=== PATIENT | female | born 1975 | race Caucasian/White ===

== ENCOUNTER → 2016-10-13 | Outpatient (CLI) | payer BC ==
[2016-10-13 16:16] LABS: Basophils % (A) 1 %; CH 29.1; CHCM 31.8; Eosinophils # (A) 0.2 k/uL (0-0.7); Eosinophils % (A) 3 %; HCT 43.6 % (34.0-46.0); HDW 2.23; HGB 13.8 gm/dL (11.4-16.0); Luc # (Auto) 0.13; Luc % (Auto) 2; Lymphocytes # (A) 1.3 k/uL (1.0-4.8); Lymphocytes % (A) 20 %; MCH 29.2 pg (25.0-35.0); MCHC 31.8 g/dL (31.0-37.0); MCV 91.8 fL (80.0-100.0); Monocytes # (A) 0.4 k/uL (0-1.0); Monocytes % (A) 6 %; Neutrophils # (A) 4.4 k/uL (1.3-7.7); Neutrophils % (A) 69 %; RBC 4.75 m/uL (3.80-5.40); RDW 13.4 % (11.5-15.5); WBC 6.4 k/uL (3.8-10.6); WBC (Perox) 6.11
[2016-10-13 16:25] LABS: ALT 35 U/L (9-52); AST 23 U/L (14-36); Alkaline Phosphatase 66 U/L (38-126); Anion Gap 11 mmol/L; Blood Urea Nitrogen 20 mg/dL (7-17); Calcium 9.4 mg/dL (8.4-10.2); Carbon Dioxide 24 mmol/L (22-30); Chloride 105 mmol/L (98-107); Glucose 63 mg/dL (74-99); Non-African American GFR(MDRD) >60 (>60 ml/min/1.73 sqM); Potassium 4.6 mmol/L (3.5-5.1); Sodium 140 mmol/L (137-145); Total Bilirubin 0.4 mg/dL (0.2-1.3); Total Protein 7.1 g/dL (6.3-8.2)
[2016-10-13 17:10] LABS: Vitamin B12 372 pg/mL (239-931)
== END | disposition home or self-care (01) ==
LOC: MMGSC 11:30
PROVIDERS: ATTEND Family Medicine
DX: E03.9 Hypothyroidism, unspecified (principal); R53.83 Other fatigue
CPT/HCPCS: 36415; 80053; 82306; 82607; 84439; 84443; 84480; 85025

== ENCOUNTER 2018-07-05 07:43 | Day surgery (SDC) | payer BC ==
[2018-07-03 12:21] VITALS: BMI 30.7
[~2018-07-05 07:43] MED LIST: LACTATED RINGERS 1,000 ML IV SCH
[2018-07-05 08:13] VITALS: TEMP 98.2
[2018-07-05] MEDS ORDERED: LIDOCAINE 1% 20 ML VIAL (10MG/ML) FOR IV START SQ ONE (08:15)
[2018-07-05] MEDS ORDERED: MIDAZOLAM 2 MG/2 ML VIAL ONE (08:51)
[2018-07-05] MEDS ORDERED: PROPOFOL 10 MG/ML 20 ML VIAL IV ONE (08:51)
[2018-07-05] MEDS ORDERED: fentaNYL (PF) 50 MCG/ML 2 ML AMP ONE (08:51)
--- NOTE | 2018-07-05 09:09 | P.PCN ---
Date of Procedure: 07/05/18 Procedure(s) Performed: BRIEF HISTORY: Patient is a 42-year-old pleasant female, scheduled for an elective colonoscopy as a part of value should of intermittent rectal bleeding for the last 3 months duration. PROCEDURE PERFORMED: Colonoscopy. PREOPERATIVE DIAGNOSIS: Intermittent rectal bleeding. IV sedation per Anesthesia. PROCEDURE: After informed consent was obtained, the patient, was brought into the endoscopy unit. IV sedation was administered by Anesthesia under continuous monitoring. Digital rectal examination was normal. Initially the Olympus CF-160 flexible video colonoscope was then inserted in the rectum, gradually advanced into the cecum without any difficulty. Careful examination was performed as the scope was gradually being withdrawn. Ileocecal valve and the appendiceal orifice were visualized and appeared normal. Prep was excellent. Mucosa of the cecum, ascending colon, transverse colon, descending colon, sigmoid colon, and rectum appeared normal. Retroflexion was performed in the rectum and no lesions were seen. The patient tolerated the procedure well. IMPRESSION: Normal-appearing colon from rectum to cecum with no evidence of colorectal neoplasia . Small internal hemorrhoids. RECOMMENDATIONS: Findings of this examination were discussed with the patient as well as her family. She will remain on a high-fiber diet and take fiber supplements on a regular basis and try to avoid straining and constipation. She was advised to have a screening colonoscopy in 10 years..
[2018-07-05 09:24] VITALS: RESP 16
[2018-07-05 09:44] VITALS: BP 110/73; PULSE 61
== END 2018-07-05 09:59 | disposition home or self-care (01) ==
LOC: ORWHC2ENDO 07:43
PROVIDERS: ATTEND Internal Medicine Gastroenterology
DX: K62.5 Hemorrhage of anus and rectum (principal); K64.8 Other hemorrhoids; Z87.891 Personal history of nicotine dependence; Q61.3 Polycystic kidney, unspecified; E07.9 Disorder of thyroid, unspecified; Z79.890 Hormone replacement therapy; Z79.899 Other long term (current) drug therapy; Z88.2 Allergy status to sulfonamides; Z88.1 Allergy status to other antibiotic agents; Z88.0 Allergy status to penicillin
CPT/HCPCS: 81025; 45378; J2250; J3010; J2704

== ENCOUNTER → 2019-10-24 | Outpatient (CLI) | payer BC ==
--- NOTE | 2019-10-24 10:23 | US ---
EXAMINATION TYPE: US kidneys/renal and bladder DATE OF EXAM: 10/24/2019 COMPARISON: NONE CLINICAL HISTORY: R10.814 Left lower quadrant abdominal tenderness. History of renal stones and polyc ystic kidneys per patient EXAM MEASUREMENTS: Right Kidney: 11.1 x 5.0 x 5.8 cm Left Kidney: 11.6 x 5.7 x 5.2 cm Right Kidney: Innumerable echogenic foci, largest measuring 0.4 cm. No hydronephrosis. Multiple cysti c areas visualized, largest measuring 2.2 x 1.8 x 1.9 cm Left Kidney: Innumerable echogenic foci, largest measuring 0.9 cm. No hydronephrosis. Multiple tiny cystic areas visualized, largest measuring 1.0 cm Bladder: wnl Bilateral Jets seen: Yes IMPRESSION: 1. Numerous bilateral renal calculi with no obstruction. Medullary sponge kidney in the differential diagnosis. 2. Multiple bilateral renal cysts.
== END | disposition home or self-care (01) ==
LOC: RADUSWWP 09:33
PROVIDERS: ATTEND Family Medicine
DX: N20.0 Calculus of kidney (principal); N28.1 Cyst of kidney, acquired
CPT/HCPCS: 76770

== ENCOUNTER → 2019-12-10 | Outpatient (CLI) | payer BC ==
--- NOTE | 2019-12-10 14:06 | XR ---
EXAMINATION TYPE: XR KUB DATE OF EXAM: 12/10/2019 COMPARISON: Ultrasound 10/24/2019 HISTORY: Pain, renal calculus TECHNIQUE: One view abdominal series FINDINGS: Degenerative change of the spine. The bowel gas pattern is nonspecific. Intrauterine device is seen. Metallic densities overlying the sacrum appears superficial. Calcifications in the pelvis are nonspe cific but likely vascular. Renal outlines are secured by overlying bowel content. However, there likely are numerous small focal calcifications overlying the right kidney correspondin g to the ultrasound abnormality. At least 5 calcifications are seen measuring less than 3 mm. Left kidney also demonstrates overlying bowel content. Punctate less than 5 mm multiple calculi are n oted. IMPRESSION: 1. Exam limited by overlying bowel content however multiple sub-5 mm bilateral renal calculi are susp ected in concordant with the ultrasound.
== END | disposition home or self-care (01) ==
LOC: RADXRMAIN 13:47
PROVIDERS: ATTEND Urology
DX: N20.0 Calculus of kidney (principal)
CPT/HCPCS: 74018

== ENCOUNTER → 2019-12-31 | Outpatient (CLI) | payer BC ==
--- NOTE | 2019-12-31 13:14 | XR ---
EXAMINATION TYPE: XR KUB DATE OF EXAM: 12/31/2019 COMPARISON: NONE HISTORY: Pain renal calculus TECHNIQUE: One view abdominal series FINDINGS: Right kidney: Single punctate 2 mm calcification overlying the lower pole the right renal outline. Left kidney: There are 2 calcifications overlying the mid pole the left kidney measuring approximatel y 2 mm. Hypertrophic and degenerative change of the spine. Bowel gas pattern nonspecific. Pelvic calcificatio ns are stable from prior exam and likely vascular. Arthropathy of the hips. IMPRESSION: 1. Bilateral sub-5 mm nephrolithiasis
== END | disposition home or self-care (01) ==
LOC: RADXRMAIN 12:46
PROVIDERS: ATTEND Urology
DX: N20.0 Calculus of kidney (principal); Z98.890 Other specified postprocedural states
CPT/HCPCS: 74018

== ENCOUNTER → 2020-10-04 | Outpatient (CLI) | payer BC ==
--- NOTE | 2020-10-04 09:22 | MR ---
EXAMINATION TYPE: MR knee RT wo con DATE OF EXAM: 10/04/2020 COMPARISON: Right knee pain HISTORY: R knee pain TECHNIQUE: Multiplanar, multisequence imaging of the right knee is performed without IV contrast. FINDINGS: MEDIAL MENISCUS: Anterior and posterior horns are intact without tear. LATERAL MENISCUS: Anterior and posterior horns are intact without tear. CRUCIATE LIGAMENTS: The anterior and posterior cruciate ligaments are intact and unremarkable. COLLATERAL LIGAMENTS: The medial collateral ligament and lateral collateral ligament complex are inta ct and unremarkable. EXTENSOR MECHANISM: Visualized quadriceps and patellar tendons are intact. EFFUSION: No significant suprapatellar joint effusion. POPLITEAL CYST: There is a small Viera's cyst. CARTILAGE: There are partial-thickness articular cartilage defects of the lateral facet and median ri dge of the patella (grade 2). There are full-thickness articular cartilage defects of the medial femo ral condyle and medial tibial plateau with subchondral marrow edema. There are partial-thickness te cular cartilage defects of the posterior lateral femoral condyle (grade 2). There are full-thickness articular cartilage defects of the medial trochlea (grade 4). BONE MARROW SIGNAL: No focal abnormal marrow signal is appreciated. OTHER: No additional significant abnormality is appreciated. IMPRESSION: 1. Tricompartmental articular cartilage defects are worst in the medial compartment. 2. Small Viera's cyst.
== END | disposition home or self-care (01) ==
LOC: RADMRIMAIN 08:07
PROVIDERS: ATTEND Orthopaedic Surgery
DX: M23.91 Unspecified internal derangement of right knee (principal); M71.21 Synovial cyst of popliteal space [Baker], right knee

== ENCOUNTER 2020-11-17 10:22 | Day surgery (SDC) | payer BC ==
[2020-11-11 17:32] VITALS: BMI 32.6
--- NOTE | 2020-11-16 18:34 | HP ---
HISTORY AND PHYSICAL DATE OF SURGERY: 11/17/2020 Chloe Lopes is a 45-year-old patient seen with progressive right knee pain. We discussed options. She elected to proceed with arthroscopy. Consent was obtained. PAST MEDICAL HISTORY: Hypothyroidism, hyperlipidemia, bei-ofuidxn-[id number] diabetes. PAST SURGICAL HISTORY: Knee arthroscopy, shoulder arthroscopy. DAILY MEDICATIONS: Levothyroxine, gabapentin, Lipitor, metformin. ALLERGIES: BACTRIM, PENICILLIN, QUINOLONES. SOCIAL HISTORY: She denies tobacco use. PHYSICAL EVALUATION OF THE RIGHT KNEE: Range of motion is zero to 130. Mild effusion. Tenderness, medial joint line. Positive medial Kim's. Ligaments stable. Patellar crepitus. Pain with patellofemoral compression. Distal neurovascular exam intact. RADIOGRAPHS: Right knee radiographs revealed mild osteoarthritis. MRI right knee revealed articular cartilage defects. IMPRESSION: 1. Internal derangement of right knee with osteochondral tear. 2. Hyperlipidemia. 3. Hypothyroidism. 4. Lpf-syyjzgc-akosqngse diabetes. PLAN: Right knee arthroscopy with chondroplasty and debridement. MMODL / IJN: [id number] /
[~2020-11-17 10:22] MED LIST changes: +DEXAMETHASONE SOD PHOSPHATE 4 MG/ML 1 ML VIAL IV ONE; +LIDOCAINE 1% (10MG/ML) FOR IV START INTRADERMA PRN; +ONDANSETRON 4 MG/2 ML VIAL IVP ONE; +SCOPOLAMINE 1.5MG/72HR PATCH TRANSDERM ONE
[2020-11-17 11:02] LABS: Glucose,Whole Blood 89 mg/dL (75-99)
[2020-11-17] MEDS ORDERED: MIDAZOLAM 2 MG/2 ML VIAL ONE (11:30)
[2020-11-17] MEDS ORDERED: KETOROLAC 15 MG/ML 1 ML VIAL ONE (11:30)
[2020-11-17] MEDS ORDERED: PROPOFOL 10 MG/ML 20 ML VIAL IV ONE (11:30)
[2020-11-17] MEDS ORDERED: fentaNYL (PF) 50 MCG/ML 2 ML AMP ONE (11:30)
[2020-11-17] MEDS ORDERED: LIDOCAINE 1% INJ 10MG/ML (20 ML MDV) ONE (11:30)
[2020-11-17] MEDS ORDERED: BUPIVACAINE (PF) 0.25% 30 ML VIAL INTRAARTIC ONE (12:04)
--- NOTE | 2020-11-17 12:21 | P.OP ---
Date of Procedure: 11/17/20 Preoperative Diagnosis: Internal derangement right knee Postoperative Diagnosis: 1. Tear medial meniscus right knee 2. Grade 3/4 chondromalacia medial femoral condyle right knee 3. Grade 2 chondromalacia patella right knee 4. Reactive synovitis medial, lateral and suprapatellar compartments right knee Procedure(s) Performed: 1. Arthroscopic partial medial meniscectomy right knee 2. Arthroscopic chondroplasty medial femoral condyle right knee 3. Arthroscopic microfracture medial femoral condyle right knee 4. Arthroscopic chondroplasty patella right knee 5. Arthroscopic partial synovectomy medial, lateral and suprapatellar compartments right knee Anesthesia: KEN, local Surgeon: Edwin Grey Estimated Blood Loss (ml): 5 Pathology: none sent Condition: stable Disposition: PACU Indications for Procedure: 45-year-old patient seen with progressive right knee pain. After having treatment options discussed, she elected to proceed with arthroscopy. Operative Findings: see description of procedure Description of Procedure: Patient was taken to the operative suite. Patient underwent a general anesthetic by the department of anesthesia. Patient was given preoperative antibiotics. The right lower extremity was placed in a well-padded arthroscopic leg ca. The right leg was prepped and draped in the normal sterile orthopedic fashion. A lateral parapatellar and suprapatellar incision was made. Trochars were inserted. Arthroscopy was initiated. Suprapatellar pouch revealed diffuse thick reactive synovitis. The patellofemoral joint appeared to articulate congruently. There was grade 2 chondromalacia with diffuse osteochondral tears present. The scope was guided into the medial gutter. No loose bodies or plica were identified The scope was then guided into the medial compartment. A medial parapatellar incision was made. Trocar inserted followed by probe. There was a radial tear posterior horn medial meniscus. There were grade 3/4 chondromalacia changes of the medial femoral condyle with some fairly large osteochondral flap tears present. There was thick reactive synovitis anteriorly. I performed a partial medial meniscectomy getting down to stable meniscal tissue. I performed a chondroplasty of the medial femoral condyle getting down to stable osteochondral tissue. I performed a partial synovectomy decompressing the thick reactive synovitis anteriorly. The residual meniscus was probed and found to be stable. There was good decompression of the synovitis. The residual osteochondral surface appeared stable. There was an area along the anterior weightbearing surface medial femoral condyle measuring about 8 mm in diameter with exposed bone. I performed a microfracture to area penetrating the bone with resultant bleeding at the microfracture site. I again probed the area was stable. Scope and probe were then guided into the intercondylar notch. Cruciates were identified, probed and found to be stable. The scope and probe were then guided into lateral compartment. Lateral meniscus was probed and found to be stable. There were mild grade 1 chondromalacia changes involving the lateral compartment with no tears. There was some thick reactive synovitis anteriorly. I introduced a motorized shaver and performed a partial synovectomy. The shaver was removed. There appeared be good decompression of the synovitis. The scope was in guided back into the suprapatellar compartment. I introduced a motorized shaver into the suprapatellar compartment. I performed a chondroplasty of the patella getting down to stable osteochondral tissue. I performed a partial synovectomy decompressing the reactive synovitis. Shaver was removed. The residual osteochondral surface of the patella was stable. There was good decompression of the synovitis. Instruments were now removed from the joint. The joint was infiltrated with .25% Marcaine. Steri-Strips were applied to the portal sites. Sterile dressings were applied. The patient was placed into a MARY CARMEN hose. No tourniquet was utilized. The patient was awakened, transferred to a bed and taken to recovery stable satisfactory condition.
[2020-11-17 12:22] VITALS: TEMP 96.8
[2020-11-17] MEDS: HYDROmorphone 0.5 MG/0.5 ML SYRINGE IVP PRN ×2 (12:33→12:39)
[2020-11-17 12:38] LABS: Glucose,Whole Blood 112 mg/dL (75-99)
[2020-11-17] MEDS ORDERED: LACTATED RINGERS 1,000 ML IV ONE (12:54)
[2020-11-17] MEDS ORDERED: traMADol 50 MG TAB ONE (13:33)
[2020-11-17] MEDS ORDERED: traMADol 50 MG TAB PO ONE (13:37)
[2020-11-17 14:04] VITALS: PULSE 74
[2020-11-17 14:41] VITALS: BP 129/83; RESP 16
== END 2020-11-17 15:00 | disposition home or self-care (01) ==
LOC: OR 10:22
PROVIDERS: ATTEND Orthopaedic Surgery

== ENCOUNTER → 2021-10-26 | Outpatient (CLI) | payer BC ==
[2021-10-26 15:46] VITALS: BP 134/82; PULSE 81; TEMP 99.1; BMI 33.8
--- NOTE | 2021-10-26 16:26 | P.HPBAR ---
Bariatric H&P - History & Physicial H&P Date: 10/26/21 History & Physicial: Visit/CC: new patient Patient initial contact: Initial weight: Initial weight in pounds: Height: 5 ft 7 in Initial BMI: Last weight: Current weight: 97.976 kg Current weight in pounds: 216.00 Current BMI: 33.8 [place] body weight (based on NIH guidelines): 61.235 kg Excess body weight loss: The patient is a 46 year-old F who presents for Bariatric Assessment. She was on saxenda and adipex for weight loss. Highest weight of 220 pounds. Her mother has trouble with weight. No stomach cancer. No esophageal cancer. She is due for colonoscopy. No GERD. No hypertension. No sleep apnea. She takes medications for weight loss. She has diabetes type II. She was on CPAP machine. No lower back pain. No hip pain. She has knee pain. No ankle pain. She has feet pain. No DVTs. She has raynauds and neuropathy. BMI of 35, 226 pounds. Past Medical History Past Medical History: Diabetes Mellitus, Hyperlipidemia, Thyroid Disorder Additional Past Medical History / Comment(s): rectal bleeding hx fissures,polycystic kidney disease, neuropathy History of Any Multi-Drug Resistant Organisms: None Reported Past Surgical History: Back Surgery Additional Past Surgical History / Comment(s): lamicectomies x2,bunionectomy,rt shoulder surgery,bridger knees scoped Past Anesthesia/Blood Transfusion Reactions: Motion Sickness, Postoperative Nausea & Vomiting (PONV) Additional Past Anesthesia/Blood Transfusion Reaction / Comm: no hx blood transfusion Past Psychological History: Anxiety, Depression Smoking Status: Former smoker Past Alcohol Use History: Occasional Additional Past Alcohol Use History / Comment(s): quit smoking 2017,smoked approx 5 yrs <1ppd Past Drug Use History: None Reported - Past Family History Mother Family Medical History: No Reported History Surgical - Exam Vital Signs Temp Pulse BP 99.1 F 81 134/82 10/26/21 15:39 10/26/21 15:39 10/26/21 15:39 Bariatric Checklist Checklist: Plan: Checklist: EGD: 1. Hiatal hernia: 2. H. Pylori: HgbA1c: Vitamin D: Smoking: Former smoker Primary care physician referral: Dr. Solis Psychiatry clearance: Cardiology clearance: Sleep study: Diet journal: VTE risk score: VTE risk level: Rehab needs at discharge:
== END | disposition home or self-care (01) ==
LOC: BARWHC3 15:16
PROVIDERS: ATTEND Surgery Plastic and Reconstructive Surgery
DX: E66.01 Morbid (severe) obesity due to excess calories (principal); Z68.33 Body mass index [BMI] 33.0-33.9, adult
CPT/HCPCS: 99213

== ENCOUNTER → 2021-12-08 | Outpatient (CLI) | payer BC ==
[2021-12-08 17:02] LABS: INR 0.9 (<1.2); Partial Thromboplastin Time 23.4 sec (22.0-30.0)
[2021-12-08 23:06] LABS: HCT 37.3 % (37.2-46.3); HGB 11.7 g/dL (12.0-15.0); MCH 28.3 pg (27.0-32.0); MCHC 31.4 g/dL (32.0-37.0); MCV 90.1 fL (80.0-97.0); NRBC Per 100 WBC 0 /100 WBCS (0.0-0.0); Platelet Count 356 X 10*3/uL (140-440); RBC 4.14 X 10*6/uL (4.10-5.20); RDW 13.2 % (11.5-14.5); WBC 6.81 X 10*3/uL (4.50-10.00)
[2021-12-09 02:41] LABS: % Iron Saturation 18.85 (12.00-45.00); ALT 47 U/L (8-44); AST 27 U/L (13-35); African American GFR (CKD) 100.2 (60.0-200.0); Albumin 4.2 g/dL (3.8-4.9); Albumin/Globulin Ratio 1.93 (1.60-3.17); Alkaline Phosphatase 65 U/L (41-126); BUN/Creat Ratio 24.69 Ratio (12.00-20.00); Calcium 9.1 mg/dL (8.7-10.3); Carbon Dioxide 25.9 mmol/L (20.0-27.5); Chloride 102 mmol/L (96-109); Ferritin 83.8 ng/mL (10.0-291.0); Globulin 2.2 g/dL (1.6-3.3); Glucose 93 mg/dL (70-110); Iron 64 ug/dL (50-170); Non-African American GFR(CKD) 86.5 (60.0-200.0); Phosphorus 3.3 mg/dL (2.4-5.1); Potassium 4.5 mmol/L (3.5-5.5); Sodium 140 mmol/L (135-145); Total Bilirubin <0.15 mg/dL (0.30-1.20); Total Iron Binding Capacity 342 ug/dL (228-460); Total Protein 6.4 g/dL (6.2-8.2)
[2021-12-09 02:58] LABS: Prealbumin 27.3 mg/dL (18.0-42.0)
[2021-12-09 02:59] LABS: Chol/HDL Ratio 3.21 Ratio; LDL Cholesterol,Calculated 108.5 mg/dL (0.0-131.0)
[2021-12-09 11:25] LABS: Zinc, Serum 68 ug/dL (60-130)
== END | disposition home or self-care (01) ==
LOC: LABWHC1 16:07
PROVIDERS: ATTEND Surgery Plastic and Reconstructive Surgery
DX: Z71.51 Drug abuse counseling and surveillance of drug abuser (principal); E66.01 Morbid (severe) obesity due to excess calories; D50.8 Other iron deficiency anemias; E89.1 Postprocedural hypoinsulinemia; E44.0 Moderate protein-calorie malnutrition; E55.9 Vitamin D deficiency, unspecified; K74.1 Hepatic sclerosis; N19 Unspecified kidney failure; T56.894A Toxic effect of other metals, undetermined, initial encounter; K50.90 Crohn's disease, unspecified, without complications
CPT/HCPCS: 84255; 84134; 84425; 80061; 80053; 82607; 82728; 82525; 82746; 83540; 83550; 83735; 84100; 84443; 84590; 84630; 85027; 85610; 85730; 82306; 80323; 83970; 83036; 80307; 93005; 36415; G0482

== ENCOUNTER 2022-01-02 06:36 | Day surgery (SDC) | payer BC ==
[2021-12-29 14:24] VITALS: BMI 36.0
[~2022-01-02 06:36] MED LIST changes: -DEXAMETHASONE SOD PHOSPHATE 4 MG/ML 1 ML VIAL IV ONE; -ONDANSETRON 4 MG/2 ML VIAL IVP ONE; -SCOPOLAMINE 1.5MG/72HR PATCH TRANSDERM ONE
--- NOTE | 2022-01-02 07:03 | P.GSHP ---
History of Present Illness H&P Date: 01/02/22 CHIEF COMPLAINT: GERD and colon screen HISTORY OF PRESENT ILLNESS: The patient is a 46-year-old female who presents with gastroesophageal reflux disease and need for colon screen. Upper and lower endoscopy were offered for further evaluation and management. PAST MEDICAL HISTORY: Please see list. PAST SURGICAL HISTORY: Please see list. MEDICATIONS: Please see list. ALLERGIES: Please see list. SOCIAL HISTORY: No illicit drug use FAMILY HISTORY: No reports of Crohn disease or ulcerative colitis. REVIEW OF ORGAN SYSTEMS: CONSTITUTIONAL: No reports of fevers or chills. GI: Denies any blood in stools or constipation. PHYSICAL EXAM: VITAL SIGNS: Stable GENERAL: Well-developed pleasant in no acute distress. HEENT: No scleral icterus. Extraocular movements grossly intact. Moist buccal mucosa. NECK: Supple without lymphadenopathy. CHEST: Unlabored respirations. Equal bilateral excursions. CARDIOVASCULAR: Regular rate and rhythm. Distal 2+ pulses. ABDOMEN: Soft, nondistended. MUSCULOSKELETAL: No clubbing, cyanosis, or edema. ASSESSMENT: 1. Gastroesophageal reflux disease 2. Colon screen. PLAN: 1. Recommend proceeding with an upper and lower endoscopy Past Medical History Past Medical History: Diabetes Mellitus, Hyperlipidemia, Sleep Apnea/CPAP/BIPAP, Thyroid Disorder Additional Past Medical History / Comment(s): hx rectal bleeding hx fissures,polycystic kidney disease, neuropathy hands/feet, diet control diabetic History of Any Multi-Drug Resistant Organisms: None Reported Past Surgical History: Back Surgery Additional Past Surgical History / Comment(s): lamicectomies x2,bunionectomy,rt shoulder surgery,bridger knees arthroscopy Past Anesthesia/Blood Transfusion Reactions: Motion Sickness, Postoperative Nausea & Vomiting (PONV) Additional Past Anesthesia/Blood Transfusion Reaction / Comment(s): no hx blood transfusion Smoking Status: Former smoker - Past Family History Mother Family Medical History: No Reported History Medications and Allergies Home Medications Medication Instructions Recorded Confirmed Type DULoxetine HCL [Cymbalta] 60 mg PO QAM 07/03/18 01/02/22 History Levothyroxine Sodium [Synthroid] 75 mcg PO QAM 07/03/18 01/02/22 History Loratadine [Claritin] 10 mg PO DAILY 07/03/18 01/02/22 History valACYclovir HCL [Valtrex] 500 mg PO DAILY 07/03/18 01/02/22 History ARIPiprazole [Abilify] 5 mg PO HS 11/11/20 01/02/22 History Atorvastatin [Lipitor] 10 mg PO DAILY 11/11/20 01/02/22 History Gabapentin 600 mg PO BID 11/11/20 01/02/22 History Sodium Bicarbonate Tab 650 mg PO BID 11/11/20 01/02/22 History Docusate [Colace] 100 mg PO DAILY 10/26/21 01/02/22 History Allergies Allergy/AdvReac Type Severity Reaction Status Date / Time levofloxacin [From Levaquin] Allergy Rash/Hives Verified 01/02/22 06:55 Penicillins Allergy Rash/Hives Verified 01/02/22 06:55 Quinolones Allergy Rash/Hives Verified 01/02/22 06:55 sulfamethoxazole Allergy Rash/Hives Verified 01/02/22 06:55 [From Bactrim] trimethoprim [From Bactrim] Allergy Rash/Hives Verified 01/02/22 06:55
[2022-01-02] MEDS ORDERED: ONDANSETRON 4 MG/2 ML VIAL ONE (07:18)
[2022-01-02] MEDS ORDERED: MIDAZOLAM 2 MG/2 ML VIAL ONE (07:21)
[2022-01-02] MEDS ORDERED: PROPOFOL 10 MG/ML 20 ML VIAL IV ONE (07:21)
[2022-01-02] MEDS ORDERED: fentaNYL (PF) 50 MCG/ML 2 ML AMP ONE (07:21)
[2022-01-02] MEDS ORDERED: LIDOCAINE 2% INJ 20 MG/ML (2 ML VIAL) ONE (07:21)
[2022-01-02 07:22] VITALS: TEMP 97.2
[2022-01-02 07:27] LABS: Glucose,Whole Blood 93 mg/dL (70-110)
--- NOTE | 2022-01-02 07:33 | P.PCN ---
Date of Procedure: 01/02/22 Description of Procedure: PREOPERATIVE DIAGNOSIS: Gastroesophageal reflux disease. Morbid obesity. POSTOPERATIVE DIAGNOSIS: Gastroesophageal reflux disease. Morbid obesity. Gastritis. Diaphragmatic hiatal hernia OPERATION: Esophagogastroduodenoscopy with biopsies along antrum. SURGEON: Nora Mccallum MD ANESTHESIA: MAC. INDICATIONS: The patient is a 46-year-old female who presents with reflux disease. Benefits and risks of the procedure were described. Informed consent was obtained. DESCRIPTION: The patient was brought into the endoscopy suite and laid in the left lateral decubitus position. An Olympus gastroscope was passed along the posterior oropharynx down to the distal esophagus where the squamocolumnar junction was encountered at 38 cm from the incisors. The stomach was entered and no bile reflux was found. Additional findings are listed below. Biopsies with cold forceps were obtained of the antrum. The first through third portion of the duodenum was examined. Retroflexion of the scope confirmed Hill grade 2 lower esophageal valve. The squamocolumnar junction demonstrated LA grade B erosive esophagitis. The stomach was desufflated. The patient tolerated the procedure well. FINDINGS: Squamocolumnar junction 38 cm from the incisors. Diaphragmatic hiatus at 40 cm. Hiatal hernia, 2 cm Hill grade 2 lower esophageal valve. LA grade B erosive esophagitis. Biopsies obtained of duodenum Chronic gastritis. Biopsies obtained RECOMMENDATIONS: Upper endoscopy as needed.
--- NOTE | 2022-01-02 07:48 | P.PCN ---
Date of Procedure: 01/02/22 Description of Procedure: PREOPERATIVE DIAGNOSIS: Colonoscopy screening. POSTOPERATIVE DIAGNOSIS: Colonoscopy screening. Diverticulosis, scattered. OPERATION: Colonoscopy to the cecum, ileocecal valve. SURGEON: Nora Mccallum MD. ANESTHESIA: MAC. INDICATIONS: The patient is a 46-year-old female who presents for colonoscopy screening. Benefits and risks were described and informed consent was obtained. DESCRIPTION OF PROCEDURE: The patient had undergone Sutab prep. The patient had been brought into the operating room and laid in the left lateral decubitus position. After adequate intravenous sedation, the rectum was examined with 2% lidocaine jelly. External hemorrhoids were encountered. The rectal tone was within normal limits. No lesions were palpated in the rectal vault. An Olympus colonoscope was advanced until the cecum, ileocecal valve and appendiceal orifice were clearly viewed. The prep was excellent. Scattered diverticulosis was encountered. No colonic polyps were found. No evidence of focal colitis was found. Retroflexion of the scope demonstrated grade 1 internal hemorrhoids without active bleeding or inflammation. The colon was desufflated. The patient had tolerated the procedure well. Withdrawal time was over 6 minutes. FINDINGS: Aronchick preparation quality scale 1 (1-5) Internal hemorrhoids, grade 2 External prolapsed hemorrhoids, grade 2 No arteriovenous malformations. No adenomatous polyps. No focal colitis. RECOMMENDATIONS: Lower endoscopy 10 years, 2031 Plan - Discharge Summary New Discharge Prescriptions: Continue DULoxetine HCL [Cymbalta] 60 mg PO QAM valACYclovir HCL [Valtrex] 500 mg PO DAILY Levothyroxine Sodium [Synthroid] 75 mcg PO QAM Loratadine [Claritin] 10 mg PO DAILY Gabapentin 600 mg PO BID Atorvastatin [Lipitor] 10 mg PO DAILY ARIPiprazole [Abilify] 5 mg PO HS Docusate [Colace] 100 mg PO DAILY Sodium Bicarbonate Tab 650 mg PO BID Discharge Medication List DULoxetine HCL [Cymbalta] 60 mg PO QAM 07/03/18 [History] Levothyroxine Sodium [Synthroid] 75 mcg PO QAM 07/03/18 [History] Loratadine [Claritin] 10 mg PO DAILY 07/03/18 [History] valACYclovir HCL [Valtrex] 500 mg PO DAILY 07/03/18 [History] ARIPiprazole [Abilify] 5 mg PO HS 11/11/20 [History] Atorvastatin [Lipitor] 10 mg PO DAILY 11/11/20 [History] Gabapentin 600 mg PO BID 11/11/20 [History] Sodium Bicarbonate Tab 650 mg PO BID 11/11/20 [History] Docusate [Colace] 100 mg PO DAILY 10/26/21 [History] Follow up Appointment(s)/Referral(s): Nora Mccallum MD [STAFF PHYSICIAN] - 01/11/22 Patient Instructions/Handouts: Diverticulosis Diet (GEN), Diverticulosis (GEN) Activity/Diet/Wound Care/Special Instructions: Repeat colonoscopy in 10 years, 2031 Discharge Disposition: HOME SELF-CARE
[2022-01-02 08:07] VITALS: BP 113/69; PULSE 67; RESP 16
== END 2022-01-02 08:30 | disposition home or self-care (01) ==
LOC: ORWHC2ENDO 06:36
PROVIDERS: ATTEND Surgery Plastic and Reconstructive Surgery
DX: Z13.810 Encounter for screening for upper gastrointestinal disorder (principal); Z12.11 Encounter for screening for malignant neoplasm of colon; K29.50 Unspecified chronic gastritis without bleeding; K44.9 Diaphragmatic hernia without obstruction or gangrene; E66.01 Morbid (severe) obesity due to excess calories; K21.00 Gastro-esophageal reflux disease with esophagitis, without bleeding; K57.30 Diverticulosis of large intestine without perforation or abscess without bleeding; E11.9 Type 2 diabetes mellitus without complications; E78.5 Hyperlipidemia, unspecified; Z87.891 Personal history of nicotine dependence; Z88.0 Allergy status to penicillin; Z88.1 Allergy status to other antibiotic agents; Z88.2 Allergy status to sulfonamides
CPT/HCPCS: 81025; 88305; 45378; 43239; J2250; J2405; J3010; J2704; J2001

== ENCOUNTER → 2022-01-23 | Outpatient (CLI) | payer BC ==
[2022-01-23 10:54] VITALS: BMI 37.3
== END ==
LOC: BARWHC3 08:39
PROVIDERS: ATTEND Surgery Plastic and Reconstructive Surgery
DX: Z71.3 Dietary counseling and surveillance (principal); E66.01 Morbid (severe) obesity due to excess calories; Z68.37 Body mass index [BMI] 37.0-37.9, adult; Z88.1 Allergy status to other antibiotic agents; Z88.0 Allergy status to penicillin; Z88.2 Allergy status to sulfonamides; Z87.891 Personal history of nicotine dependence
CPT/HCPCS: 97804

== ENCOUNTER → 2022-01-25 | Outpatient (CLI) | payer BC ==
[2022-01-25 16:21] VITALS: BP 134/83; PULSE 94; TEMP 98.5; BMI 36.8
--- NOTE | 2022-01-25 16:41 | P.BASOAP ---
Subjective Progress Note Date: 01/25/22 Plan for sleeve. Hiatal hernia described. Needs to start MVI. EKG abnormal. Recommend Alive MVI and vitamin D. EGD reviewed. Objective - Vital Signs Vital signs: Vital Signs Temp 98.5 F 01/25/22 16:17 Pulse 94 01/25/22 16:17 Resp BP 134/83 01/25/22 16:17 Pulse Ox FiO2 Intake & Output 01/24/22 01/25/22 01/25/22 18:59 06:59 18:59 Weight 106.594 kg Assessment/Plan Plan: Date: 01/25/22 Initial Weight: Initial BMI: Current Weight: 106.594 kg Current BMI: 36.8 Type of Surgery: Total Volume in Band: Previous Volume: Volume Removed: Volume Added: Band Size:
== END ==
LOC: BARWHC3 15:25
PROVIDERS: ATTEND Surgery Plastic and Reconstructive Surgery
DX: E66.01 Morbid (severe) obesity due to excess calories (principal); Z88.1 Allergy status to other antibiotic agents; Z88.0 Allergy status to penicillin; Z88.2 Allergy status to sulfonamides; Z88.8 Allergy status to other drugs, medicaments and biological substances; Z87.891 Personal history of nicotine dependence
CPT/HCPCS: 99211

== ENCOUNTER 2022-02-15 16:11 | Outpatient (CLI) | payer BC | END 2022-02-23 15:23 | disposition home or self-care (01) | LOC: LABPAT 16:11 | PROVIDERS: ATTEND Surgery Plastic and Reconstructive Surgery | DX: Z53.9 Procedure and treatment not carried out, unspecified reason (principal) ==

== ENCOUNTER → 2022-02-21 | Outpatient (CLI) | payer BC ==
[2022-02-21 22:48] LABS: African American GFR (CKD) 88.2 (60.0-200.0); Albumin 4.4 g/dL (3.8-4.9); Albumin/Globulin Ratio 1.83 (1.60-3.17); Anion Gap 11.5 mmol/L (10.00-18.00); Basophils # (A) 0.02 X 10*3/uL (0.00-0.10); Basophils % (A) 0.3 %; Blood Urea Nitrogen 21.6 mg/dL (9.0-27.0); Calcium 9.7 mg/dL (8.7-10.3); Carbon Dioxide 24.5 mmol/L (20.0-27.5); Eosinophils # (A) 0.08 X 10*3/uL (0.04-0.35); Eosinophils % (A) 1.2 %; Globulin 2.4 g/dL (1.6-3.3); HCT 38.7 % (37.2-46.3); HGB 12.2 g/dL (12.0-15.0); Immature Grans, Automated 0.5 %; Lymphocytes # (A) 1.92 X 10*3/uL (0.90-5.00); Lymphocytes % (A) 29.7 %; MCH 28.8 pg (27.0-32.0); MCHC 31.5 g/dL (32.0-37.0); MCV 91.3 fL (80.0-97.0); Mean Platelet Volume 10.5 fL (9.5-12.2); Monocytes # (A) 0.51 X 10*3/uL (0.20-1.00); Monocytes % (A) 7.9 %; NRBC Per 100 WBC 0 /100 WBCS (0.0-0.0); Neutrophils % (A) 60.4 %; Non-African American GFR(CKD) 76.1 (60.0-200.0); Platelet Count 350 X 10*3/uL (140-440); Potassium 4.2 mmol/L (3.5-5.5); RBC 4.24 X 10*6/uL (4.10-5.20); RDW 13.3 % (11.5-14.5); Total Bilirubin 0.3 mg/dL (0.30-1.20); Total Protein 6.8 g/dL (6.2-8.2); WBC 6.46 X 10*3/uL (4.50-10.00)
== END | disposition home or self-care (01) ==
LOC: LABPAT 15:33
PROVIDERS: ATTEND Surgery Plastic and Reconstructive Surgery
DX: Z01.812 Encounter for preprocedural laboratory examination (principal)
CPT/HCPCS: 80053; 85025

== ENCOUNTER 2022-02-27 12:01 | Observation (INO) | payer BC ==
--- NOTE | 2022-02-27 11:47 | P.GSHP ---
History of Present Illness H&P Date: 02/27/22 CHIEF COMPLAINT: Morbid obesity HISTORY OF PRESENT ILLNESS: Chloe Lopes is a 46-year-old female who comes with lifelong morbid obesity. As result of morbid obesity, she has developed, hypertensive heart disease, hyperlipidemia, osteoarthritis of the hips and knees. She has completed medical supervised weight loss. She completed medical including cardiac assessment. She has completed psychological risk assessment. All surgical options were reviewed. She elected for gastric bypass. At height of 5 feet 7 inches. Her body mass index is 37.8 PAST MEDICAL HISTORY: Review PAST SURGICAL HISTORY: Review HOME MEDICATIONS: ALLERGIES: SOCIAL HISTORY: Reviewed FAMILY HISTORY: No family history of ulcerative colitis disease or Crohn's disease. Family history of morbid obesity. No lupus in the family. No reports of stomach or esophageal cancer. REVIEW OF ORGAN SYSTEMS: CONSTITUTIONAL:. HEENT: Denies any active troubles with vision or hearing. ENDOCRINE: Has diabetes. Has hypothyroidism. CARDIOVASCULAR: Past reports of palpitations or heart attacks or chest pain. RESPIRATORY: Has daytime somnolence. GASTROINTESTINAL: Denies any bright red blood per rectum. Has gastroesophageal reflux disease. MUSCULOSKELETAL: Has lower back pain and joint pain. Has osteoarthritis of the knees. NEURO: No headaches. No seizure disorders. PSYCH: Has depression. No suicidal ideation. RHEUMATOLOGIC: No lupus. No rheumatoid arthritis. HEMATOLOGIC: Denies any abnormal bleeding or bruising. No personal history of DVTs. SKIN: Has rash. No skin cancer. PHYSICAL EXAM: VITAL SIGNS: BMI 38.0 GENERAL: Well-developed in no acute distress. HEENT: No scleral icterus. Extraocular movements grossly intact. Hears conversational speech. No nasal drainage. NECK: Supple without lymphadenopathy. CHEST: Nonlabored respirations with equal bilateral excursions. CARDIOVASCULAR: Regular rate and regular rhythm. Distal 2+ pulses. ABDOMEN: Obese, soft, nontender, nondistended. MUSCULOSKELETAL: No clubbing, cyanosis. NEURO: No focal or lateralizing signs. Cranial nerves 2 through 12 grossly within normal limits. PSYCH: Appropriate affect. Alert and oriented to person, place and time. SKIN: Good skin turgor. Well perfused. ASSESSMENT: 1. Morbid obesity due to excess calories 2. Body mass index of 37.8 3. Osteoarthritis of the knees. 4. Osteoarthritis of the lower back. 5. Hypertensive heart disease. 6. Gastroesophageal reflux disease 7. Hyperlipidemia PLAN: 1. Bariatric options between a sleeve, band and a Javan-en-Y gastric bypass were reviewed in detail. The patient elected for.sleeve gastrectomy Robotic assisted approach described. 2. The [place] [facility] Data was also reviewed with benefits and risks as described. 3. An 8 page second-generation bariatric consent form was reviewed in detail including potential of bleeding, infection, leaks, adequate weight loss, nutritional deficiencies which the patient demonstrated understanding of the risks. 4. A 2 week high-protein low caloric 800 kcal diet described to address he patomegaly. 5. Preoperative labs including complete metabolic panel and CBC with type and screen recommended. 6. DVT prophylaxis per [place] [facility]. 7. Antibiotic prophylaxis. 8. Inpatient hospitalization anticipated for more than 2 nights. 9. All questions and concerns were addressed with the patient. 10. She is at elevated risk for perioperative complications Past Medical History Past Medical History: Diabetes Mellitus, GERD/Reflux, Hyperlipidemia, Neurologic Disorder, Sleep Apnea/CPAP/BIPAP, Thyroid Disorder Additional Past Medical History / Comment(s): No CPAP use. Hx rectal bleeding/fissures, polycystic kidney disease, neuropathy in hands and feet, diet controllled diabetes. History of Any Multi-Drug Resistant Organisms: None Reported Past Surgical History: Back Surgery, Orthopedic Surgery Additional Past Surgical History / Comment(s): Lamicectomies X2, bunionectomy, right shoulder surgery, bilateral knee arthroscopy. Past Anesthesia/Blood Transfusion Reactions: Motion Sickness, Postoperative Nausea & Vomiting (PONV) Additional Past Anesthesia/Blood Transfusion Reaction / Comment(s): No hx blood transfusion. Past Psychological History: Anxiety, Depression Smoking Status: Former smoker Past Alcohol Use History: Occasional Additional Past Alcohol Use History / Comment(s): Quit smoking 1 month ago, smoked approximately 5 yrs <1ppd. Past Drug Use History: None Reported - Past Family History Mother Family Medical History: No Reported History Medications and Allergies Home Medications Medication Instructions Recorded Confirmed Type DULoxetine HCL [Cymbalta] 60 mg PO QAM 07/03/18 02/22/22 History Levothyroxine Sodium [Synthroid] 75 mcg PO QAM 07/03/18 02/22/22 History Loratadine [Claritin] 10 mg PO DAILY 07/03/18 02/22/22 History valACYclovir HCL [Valtrex] 500 mg PO DAILY 07/03/18 02/22/22 History ARIPiprazole [Abilify] 5 mg PO HS 11/11/20 02/22/22 History Atorvastatin [Lipitor] 10 mg PO DAILY 11/11/20 02/22/22 History Gabapentin 600 mg PO BID 11/11/20 02/22/22 History Sodium Bicarbonate Tab 650 mg PO BID 11/11/20 02/22/22 History Docusate [Colace] 100 mg PO DAILY 10/26/21 02/22/22 History Allergies Allergy/AdvReac Type Severity Reaction Status Date / Time levofloxacin [From Levaquin] Allergy Rash/Hives Verified 02/22/22 10:57 Penicillins Allergy Rash/Hives Verified 02/22/22 10:57 Quinolones Allergy Rash/Hives Verified 02/22/22 10:57 sulfamethoxazole Allergy Rash/Hives Verified 02/22/22 10:57 [From Bactrim] trimethoprim [From Bactrim] Allergy Rash/Hives Verified 02/22/22 10:57
[~2022-02-27 12:01] MED LIST changes: +DEXAMETHASONE SOD PHOSPHATE 4 MG/ML 1 ML VIAL IV ONE; -LACTATED RINGERS 1,000 ML IV SCH; -LIDOCAINE 1% (10MG/ML) FOR IV START INTRADERMA PRN; +MIDAZOLAM 2 MG/2 ML VIAL IV PRN; +ONDANSETRON 4 MG/2 ML VIAL IVP ONE; +SCOPOLAMINE 1 MG/72 HR PATCH TRANSDERM ONE
[2022-02-27 12:54] LABS: Glucose,Whole Blood 75 mg/dL (70-110)
[2022-02-27] MEDS: LACTATED RINGERS 1,000 ML IV SCH (12:54)
[2022-02-27 13:17] LABS: HCT 38.3 % (34.0-46.0); HGB 12.7 gm/dL (11.4-16.0); MCH 29.6 pg (25.0-35.0); MCHC 33.2 g/dL (31.0-37.0); Mean Platelet Volume 7.8; Platelet Count 348 k/uL (150-450); RDW 12.5 % (11.5-15.5); WBC 5.6 k/uL (3.8-10.6)
[2022-02-27 13:41] LABS: Albumin 4.2 g/dL (3.5-5.0); Calcium 8.6 mg/dL (8.4-10.2); Potassium 3.8 mmol/L (3.5-5.1); Total Bilirubin 0.5 mg/dL (0.2-1.3); Total Protein 6.8 g/dL (6.3-8.2)
[2022-02-27] MEDS ORDERED: ENOXAPARIN 40 MG/0.4 ML SYRINGE SQ STA (14:13)
[2022-02-27] MEDS ORDERED: diphenhydrAMINE 50 MG/ML 1 ML VIAL ONE (14:15)
[2022-02-27] MEDS ORDERED: ePHEDrine 50 MG/ML 1 ML VIAL ONE (14:15)
[2022-02-27] MEDS ORDERED: fentaNYL (PF) 50 MCG/ML 2 ML AMP ONE (14:15)
[2022-02-27] MEDS ORDERED: LIDOCAINE 2% INJ 20 MG/ML (2 ML VIAL) ONE (14:15)
[2022-02-27] MEDS ORDERED: NEOSTIGMINE 1 MG/ML 10 ML VIAL ONE (14:15)
[2022-02-27] MEDS ORDERED: HYDROmorphone (PF) 1 MG/ML ONE (14:15)
[2022-02-27] MEDS ORDERED: MIDAZOLAM 2 MG/2 ML VIAL ONE (14:15)
[2022-02-27] MEDS ORDERED: WATER FOR INJECTION, STERILE 10 ML VIAL IV ONE (14:15)
[2022-02-27] MEDS ORDERED: PROPOFOL 10 MG/ML 20 ML VIAL IV ONE (14:15)
[2022-02-27] MEDS ORDERED: ROCURONIUM 10 MG/ML (5 ML VIAL) IV ONE (14:15)
[2022-02-27] MEDS ORDERED: SUCCINYLCHOLINE CHLORIDE 200 MG/10 ML VIAL IV ONE (14:15)
[2022-02-27] MEDS ORDERED: LIDOCAINE 4% LTA KIT (4 ML) TOPICAL ONE (14:15)
[2022-02-27] MEDS ORDERED: GLYCOPYRROLATE 0.2 MG/ML 2 ML VIAL ONE (14:15)
[2022-02-27] MEDS ORDERED: BUPIVACAIN-EPI 0.25%-1:200,000 30 ML VIAL SQ ONE (14:44)
[2022-02-27] MEDS ORDERED: LACTATED RINGERS 1,000 ML IV ONE (15:20)
[2022-02-27] MEDS: HYDROmorphone 0.5 MG/0.5 ML SYRINGE IVP PRN ×2 (16:06→16:32)
[2022-02-27] MEDS ORDERED: ONDANSETRON 4 MG/2 ML VIAL IVP ONE (16:10)
[2022-02-27] MEDS ORDERED: diphenhydrAMINE 50 MG/ML 1 ML VIAL IVP ONE (16:21)
--- NOTE | 2022-02-27 16:24 | P.OP ---
Date of Procedure: 02/27/22 Description of Procedure: SURGEON: KARLIE BRAND MD PREOPERATIVE DIAGNOSES: 1. Morbid obesity due to excess calories 2. Body mass index of 37.0 initial POSTOPERATIVE DIAGNOSES: 1. Morbid obesity due to excess calories 2. Body mass index of 37.0 initial OPERATION: 1. Robotic assisted daVinci Xi laparoscopic sleeve gastrectomy with 40-Ugandan bougie, multiport. 2. Intraoperative esophagogastroduodenoscopy. ANESTHESIA: Gen. local anesthetic ESTIMATED BLOOD LOSS: 5 mL SPECIMENS REMOVED: Sleeve gastrectomy COMPLICATIONS: None. FINDINGS: 1. Negative intraoperative esophagogastrojejunoscopy leak test. 2. Mild to moderate hepatomegaly and no large hiatus hernia. 3. Total of 7 staplers used including 2 - 60 mm black, 1 - green, 4 - blue robot daylin used to create the gastric sleeve. 4. Sleeve gastrectomy, 30 x 6 cm INDICATIONS: Chloe Lopes is a 46-year-old female who comes with lifelong morbid obesity. She is looking into the sleeve gastrectomy. She has comorbidities including obstructive sleep apnea, sleep apnea, osteoarthritis of the knees and back At height of 5 feet 7 inches, her ideal body weight is pounds. All surgical options for morbid obesity had been described using the [place] [facility] comorbidity resolution including complication risk score. A second-generation bariatric consent form was described in detail including the possibility of protein malnutrition, leaks, gastric stricture, venous thrombosis, gastroesophageal reflux disease, need for further surgery for which she demonstrated understanding. Benefits and risks of the procedure were described at length. Informed consent was obtained. DESCRIPTION: The patient was brought into the operating room theater. Preoperatively she had received Lovenox subcutaneously for DVT prophylaxis. Additionally she had Peridex oral solution as an oral decontaminant. After general induction, the abdomen was prepped and draped in standard sterile fashion. An Ioban draping was placed along the abdomen. A robotic da Jamarcus Xi system was prepped and primed. At 11 cm from the xiphoid, proposed port sites were marked with indelible marker along the anterior axillary line bilaterally, mid axillary line bilaterally with each ports were marked 10 to 15 cm from each other. The robotic stapler port was marked for the right midclavicular line. A 5 mm 0 degrees laparoscopic trocar entry was performed along the left upper quadrant. The abdomen was insufflated to 15 mmHg pressure was tolerated well. Diagnostic laparoscopy demonstrated no injury to bowel, viscera, or mesentery. No evidence of large hiatus hernia was identified. The liver edge was sharp consistent with 2 week low-carb high-protein diet. A 8 mm port was placed along the left upper abdominal wall after exchanging the 5 mm port. A separate 8 mm port was placed along the left lateral abdominal wall. Please note that the ports were placed at least 20 cm away from the target anatomy. Care was taken to check each robotic arms were safely away from collision with the bed or the patient. At the epigastrium, a medium sized Xiang liver retractor was placed under direct visualization with the Iron Associate Director Regulatory Affairs placed under the right shoulder of the patient. Next, 12-mm robot stapler port was placed along the right upper quadrant. The camera 8-mm port was maintained along the epigastrium. The patient was repositioned in reverse Trendelenburg position at 21-degrees after lowering the bed. The robot was docked along the left side of the patient. Using a grasper for arm 4, a vessel sealer for arm 3, including grasper for arm 1, the robotic system was docked and primed as described. Instruments were interchanged by the child life assistant for stapler loads. The camera was placed at 30- degrees down. I had sat at the console. The pylorus was identified and 6 cm proximally along the greater curvature of the stomach, the short gastrics were mobilized upwards to the angle of His using a vessel sealer. Hemostasis was excellent during this portion of the procedure. Next, the upper pole of the stomach was adherent to the left arya, which was gently dissected free using atraumatic grasper. I went to the head of the bed and placed 40-Ugandan blunt bougie into the stomach. The bougie was readjusted by the nurse medical office rep. Robotic stapler black load 60 mm 2 followed by green 60 mm x 5 loads were used to create the sleeve. Initial firing was across the antrum of the stomach towards the angle of His. The staple line was linear without corkscrewing. The space from the angularis incisura of the sleeve was approximately 4 cm. I then went to the head of the bed to perform the intraoperative esophagogastroduodenoscopy leak test. The bougie was withdrawn. The upper pole of the stomach was bathed using normal saline solution. The scope was withdrawn with careful inspection along the staple line for which no leaks were found along the entire length. Additionally,the sleeve was completely hemostatic without any encroachment along the angularis incisura. Its topology was a soft "J". No stricture was encountered upon placement of the scope. The GI tract was desufflated. The patient tolerated this portion of the procedure well. The scope was completely withdrawn. The robot was undocked. I then rescrubbed into case, whereby the irrigation fluid was aspirated from the abdominal cavity. Tisseel fibrin sealant was placed along the entire staple length. Once dried the Xiang liver retractor was removed. Attention was now brought to removal of the specimen. The distal end of the sleeve gastrectomy specimen was brought out through the 12 mm port at the left upper quadrant. The specimen was gently removed en total. No contamination had occurred during this process. All instruments and pneumoperitoneum including irrigation fluid was removed from the abdominal cavity. The 12 mm port site was closed using 0-Vicryl and Leonardo Dawn and irrigated with diluted hydrogen peroxide. The final incisions were closed using subcuticular interrupted suture of 4-0 Monocryl. Exofin was applied to the skin once the skin had been cleansed. OptiFoam dressing was placed along the stomach extraction site. The sleeve specimen was measured and checked also for leaks which none were found. At the end of the procedure, needle, sponge, and instrument count was verified correct by the surgical elastic knitter hand frame. The patient was taken to the postanesthesia care unit in stable condition. She had tolerated the procedure well. Intraoperative films and findings were reviewed with the patient's family.
[2022-02-27] MEDS ORDERED: SODIUM CHLORIDE 0.9% 1,000 ML IV ONE (16:26)
[2022-02-27] MEDS ORDERED: NALOXONE 0.4 MG/ML 1 ML VIAL IV PRN ×2 (16:29→16:40)
[2022-02-27] MEDS ORDERED: HYDROmorphone 1 MG/ML 1 ML SYRINGE IVP PRN (16:35)
[2022-02-27] MEDS ORDERED: diphenhydrAMINE 50 MG/ML 1 ML VIAL IVP PRN (16:35)
[2022-02-27] MEDS ORDERED: fentaNYL PCA 500 MCG/50 ML BAG IV PRN (16:40)
[2022-02-27] MEDS ORDERED: fentaNYL (PF) 50 MCG/1 ML VIAL IV ONE ×3 (16:44)
[2022-02-27] MEDS: 0.9% NACL WITH KCL 20 MEQ/L 1,000 ML IV SCH (17:47)
[2022-02-27] MEDS: ONDANSETRON 4 MG/2 ML VIAL IVP SCH (17:48)
[2022-02-27] MEDS: SIMETHICONE 40 MG/0.6 ML DROPS 2,000 MG/30 ML BOTTLE PO SCH (17:49)
[2022-02-27] MEDS: HYOSCYAMINE ORAL DROPS 1.875 MG/15 ML BOTTLE PO SCH (17:49)
[2022-02-27] MEDS: ACETAMINOPHEN IV (For NPO) 1,000 MG in EMPTY BAG 1 BAG IVPB SCH (17:49)
[2022-02-27] MEDS: ALBUTEROL NEBULIZED 2.5 MG/3 ML INHALATION SCH (19:48)
[2022-02-27] MEDS ORDERED: DEXAMETHASONE SOD PHOSPHATE 10 MG/ML 1 ML VIAL IVP ONE (20:00)
[2022-02-27] MEDS: PANTOPRAZOLE 40 MG/10 ML VIAL IV SCH (20:21)
[2022-02-27] MEDS: TRIMETHOBENZAMIDE 100 MG/ML 2 ML VIAL IM PRN (22:06)
[2022-02-27] MEDS: GABAPENTIN 300 MG CAP PO SCH (22:46)
[2022-02-28] MEDS: ACETAMINOPHEN IV (For NPO) 1,000 MG in EMPTY BAG 1 BAG IVPB SCH ×5 (00:08→23:37)
[2022-02-28] MEDS: 0.9% NACL WITH KCL 20 MEQ/L 1,000 ML IV SCH ×2 (00:09→06:27)
[2022-02-28] MEDS: HYOSCYAMINE ORAL DROPS 1.875 MG/15 ML BOTTLE PO SCH ×5 (00:09→23:38)
[2022-02-28] MEDS: ONDANSETRON 4 MG/2 ML VIAL IVP SCH ×5 (00:09→23:37)
[2022-02-28] MEDS: DEXAMETHASONE SOD PHOSPHATE 4 MG/ML 1 ML VIAL IVP SCH ×5 (00:09→23:37)
[2022-02-28] MEDS: SIMETHICONE 40 MG/0.6 ML DROPS 2,000 MG/30 ML BOTTLE PO SCH ×5 (00:10→23:37)
[2022-02-28] MEDS: LACTATED RINGERS 1,000 ML IV SCH (06:30)
[2022-02-28] MEDS ORDERED: 0.9% NACL WITH KCL 20 MEQ/L 1,000 ML IV SCH (08:00)
[2022-02-28] MEDS: ENOXAPARIN 40 MG/0.4 ML SYRINGE SQ SCH (08:49)
[2022-02-28] MEDS: PANTOPRAZOLE 40 MG/10 ML VIAL IV SCH ×2 (08:49→21:39)
[2022-02-28] MEDS: GABAPENTIN 300 MG CAP PO SCH ×4 (08:49→20:31)
[2022-02-28] MEDS: ALBUTEROL NEBULIZED 2.5 MG/3 ML INHALATION SCH ×4 (09:01→21:10)
[2022-02-28 09:06] LABS: Basophils # (A) 0.01 X 10*3/uL (0.00-0.10); Basophils % (A) 0.1 %; Eosinophils # (A) 0 X 10*3/uL (0.04-0.35); Eosinophils % (A) 0 %; HCT 39.5 % (37.2-46.3); HGB 12.4 g/dL (12.0-15.0); Immature Grans, Automated 0.6 %; Lymphocytes # (A) 0.82 X 10*3/uL (0.90-5.00); Lymphocytes % (A) 8.6 %; MCH 28.6 pg (27.0-32.0); MCHC 31.4 g/dL (32.0-37.0); Mean Platelet Volume 10.3 fL (9.5-12.2); Monocytes # (A) 0.15 X 10*3/uL (0.20-1.00); Monocytes % (A) 1.6 %; NRBC Per 100 WBC 0 /100 WBCS (0.0-0.0); Neutrophils # (A) 8.46 X 10*3/uL (1.80-7.70); Neutrophils % (A) 89.1 %; Platelet Count 399 X 10*3/uL (140-440); RBC 4.34 X 10*6/uL (4.10-5.20); RDW 13.2 % (11.5-14.5)
[2022-02-28 09:26] LABS: Magnesium 1.9 mg/dL (1.5-2.4)
[2022-02-28 09:28] LABS: African American GFR (CKD) 101.8 (60.0-200.0); Anion Gap 14.5 mmol/L (10.00-18.00); Blood Urea Nitrogen 14.2 mg/dL (9.0-27.0); Calcium 8.5 mg/dL (8.7-10.3); Carbon Dioxide 20.5 mmol/L (20.0-27.5); Non-African American GFR(CKD) 87.8 (60.0-200.0); Phosphorus 2.9 mg/dL (2.4-5.1)
[2022-02-28] MEDS: valACYclovir HCL 500 MG TAB PO SCH ×2 (10:10→10:41)
[2022-02-28] MEDS: SODIUM BICARBONATE TAB 650 MG TAB PO SCH ×3 (10:10→21:38)
[2022-02-28] MEDS: LORATADINE 10 MG TAB PO SCH (10:10)
[2022-02-28] MEDS: DOCUSATE 100 MG CAP PO SCH ×2 (10:11→10:42)
--- NOTE | 2022-02-28 10:12 | FL ---
EXAMINATION TYPE: FL UGI DATE OF EXAM: 02/28/2022 LIMITED UGI: CLINICAL HISTORY: Morbid Obesity, gastric sleeve surgery yesterday. TECHNIQUE: Limited esophagram is performed utilizing 40 oz of Omnipaque 350. A total of 30 seconds o f fluoroscopic time was utilized during procedure and 35 images obtained. COMPARISON: None. FINDINGS: The patient swallowed contrast without difficulty or delay. Esophageal peristalsis and mo tility are within normal limits. There is good flow of contrast along the diaphragmatic hiatus into proximal stomach and subsequent adequate flow through proximal anastomosis into gastric sleeve. A sma ll fundal gastric diverticulum is felt present. There is good flow from distal sleeve and anastomosis into pylorus and duodenal sweep. Patient remains asymptomatic. There is no evidence of contrast extr avasation to suggest leak. IMPRESSION: No evidence of leak or significant obstruction status post recent gastric sleeve surgery .
[2022-02-28] MEDS: TRIMETHOBENZAMIDE 100 MG/ML 2 ML VIAL IM PRN (10:23)
[2022-02-28] MEDS: LEVOTHYROXINE 75 MCG TAB PO SCH (10:37)
[2022-02-28 13:14] VITALS: BMI 35.4
--- NOTE | 2022-02-28 15:40 | P.PN ---
Subjective Progress Note Date: 02/28/22 CHIEF COMPLAINT: Morbid obesity HISTORY OF PRESENT ILLNESS: Postop day #1 status post robotic-assisted la paroscopic sleeve gastrectomy. Patient had nausea and vomiting. Patient is very tearful. She is worried about being up to take her usual home medications. Upper GI shows no evidence of leak or obstruction. Afebrile. WBC 9.5 Hgb 12.4 platelets 399 sodium is 136 potassium is 5.0 creatinine is 0.8 magnesium is 1.9 phosphorous is 2.9 PHYSICAL EXAM: VITAL SIGNS: Reviewed GENERAL: Well-developed in no acute distress. HEENT: No sclera icterus. Extraocular movements grossly intact. Moist buccal mucosa. Head is atraumatic, normocephalic. Hears conversational speech. No nasal drainage. NECK: Supple without lymphadenopathy. CHEST: Non-labored respirations and equal bilateral excursions. CARDIOVASCULAR: Palpable 2+ radial pulses. ABDOMEN: Soft. Nondistended. Abdominal binder in place MUSCULOSKELETAL: No clubbing or cyanosis. NEUROLOGIC: No focal or lateralizing signs. Cranial nerves II through XII grossly intact. PSYCH: Appropriate affect. Alert and oriented to person, place and time. SKIN: Well perfused. Good skin turgor. ASSESSMENT: 1. Morbid obesity 2. Hyperkalemia PLAN: -Continue bariatric clear liquid diet -Encourage patient to ambulate -Potassium removed from IV fluids -Continue normal saline at 100 mL an hour -Home medications resumed. Cymbalta held due to its interaction with the Zofran -Continue pain management -Continue antiemetics -Anticipate discharge tomorrow -GI prophylaxis Protonix and DVT prophylaxis Lovenox Physician Principal Archaeologist note has been reviewed by physician. Signing provider agrees with the documented findings, assessment, and plan of care. Objective - Vital Signs Vital signs: Vital Signs Temp 98.2 F 02/28/22 14:00 Pulse 62 02/28/22 14:00 Resp 17 02/28/22 14:00 BP 117/72 02/28/22 14:00 Pulse Ox 96 02/28/22 14:00 FiO2 Intake & Output 02/27/22 02/28/22 02/28/22 18:59 06:59 18:59 Intake Total 1850 Output Total 5 Balance 1845 Weight 102.8 kg 102.8 kg 102.8 kg Intake: IV 1850 Output: Estimated Blood Loss 5 Other: Voiding Method Toilet Toilet # Voids 7 - Labs CBC & Chem 7: 02/28/22 06:34 02/28/22 06:34 Labs: Abnormal Lab Results - Last 24 Hours (Table) 02/28/22 02/28/22 Range/Units 06:34 06:34 MCHC 31.4 L (32.0-37.0) g/dL Immature Gran # 0.06 H (0.00-0.04) X 10*3/uL Neutrophils # 8.46 H (1.80-7.70) X 10*3/uL Lymphocytes # 0.82 L (0.90-5.00) X 10*3/uL Monocytes # 0.15 L (0.20-1.00) X 10*3/uL Eosinophils # 0 L (0.04-0.35) X 10*3/uL Calcium 8.5 L (8.7-10.3) mg/dL
[2022-02-28] MEDS: SODIUM CHLORIDE 0.9% 1,000 ML IV SCH (16:39)
[2022-02-28 20:23] VITALS: RESP 16
[2022-02-28] MEDS ORDERED: ARIPiprazole 5 MG TAB PO SCH (21:00)
[2022-03-01] MEDS: SODIUM CHLORIDE 0.9% 1,000 ML IV SCH (02:09)
[2022-03-01] MEDS: ACETAMINOPHEN IV (For NPO) 1,000 MG in EMPTY BAG 1 BAG IVPB SCH (06:39)
[2022-03-01] MEDS: DEXAMETHASONE SOD PHOSPHATE 4 MG/ML 1 ML VIAL IVP SCH (06:39)
[2022-03-01] MEDS: ONDANSETRON 4 MG/2 ML VIAL IVP SCH (06:39)
[2022-03-01] MEDS: HYOSCYAMINE ORAL DROPS 1.875 MG/15 ML BOTTLE PO SCH (06:40)
[2022-03-01] MEDS: SIMETHICONE 40 MG/0.6 ML DROPS 2,000 MG/30 ML BOTTLE PO SCH (06:40)
[2022-03-01] MEDS: LEVOTHYROXINE 75 MCG TAB PO SCH (06:40)
[2022-03-01] MEDS: LACTATED RINGERS 1,000 ML IV SCH (06:40)
[2022-03-01 07:13] VITALS: BP 125/80; PULSE 54; TEMP 98.3
[2022-03-01] MEDS: ENOXAPARIN 40 MG/0.4 ML SYRINGE SQ SCH (07:53)
[2022-03-01] MEDS: LORATADINE 10 MG TAB PO SCH (07:53)
[2022-03-01] MEDS: PANTOPRAZOLE 40 MG/10 ML VIAL IV SCH (07:53)
[2022-03-01] MEDS: valACYclovir HCL 500 MG TAB PO SCH (08:07)
[2022-03-01] MEDS: GABAPENTIN 300 MG CAP PO SCH (08:07)
[2022-03-01] MEDS: SODIUM BICARBONATE TAB 650 MG TAB PO SCH (08:12)
[2022-03-01] MEDS: DOCUSATE 100 MG CAP PO SCH (08:12)
[2022-03-01] MEDS: ALBUTEROL NEBULIZED 2.5 MG/3 ML INHALATION SCH (08:57)
--- NOTE | 2022-03-01 08:59 | P.DS ---
Providers Date of admission: 02/28/22 08:33 Expected date of discharge: 03/01/22 Attending physician: Nora Mccallum Primary care [facility] Course: Patient seen and evaluated. Nausea resolved. Tolerating liquids. Medical reconciliation performed. Stable for discharge. Plan - Discharge Summary Discharge Rx Participant: Yes New Discharge Prescriptions: New bisacodyL [Dulcolax] 5 mg PO DAILY PRN #10 tab PRN Reason: Constipation Simethicone 40 mg/0.6 ml Drops [Mylicon Drops] 40 mg PO PCHS PRN #30 ml PRN Reason: Gas Ondansetron Odt [Zofran Odt] 4 mg PO Q8HR PRN #9 tab PRN Reason: Nausea Omeprazole [PriLOSEC] 40 mg PO DAILY #30 cap Acetaminophen Tab [Tylenol Tab] 1,000 mg PO Q6HR PRN #30 tablet PRN Reason: Pain Continue DULoxetine HCL [Cymbalta] 60 mg PO QAM valACYclovir HCL [Valtrex] 500 mg PO DAILY Levothyroxine Sodium [Synthroid] 75 mcg PO QAM Loratadine [Claritin] 10 mg PO DAILY Gabapentin 600 mg PO BID ARIPiprazole [Abilify] 5 mg PO HS Docusate [Colace] 100 mg PO DAILY Sodium Bicarbonate Tab 650 mg PO BID Discontinued Atorvastatin [Lipitor] 10 mg PO DAILY Discharge Medication List DULoxetine HCL [Cymbalta] 60 mg PO QAM 07/03/18 [History] Levothyroxine Sodium [Synthroid] 75 mcg PO QAM 07/03/18 [History] Loratadine [Claritin] 10 mg PO DAILY 07/03/18 [History] valACYclovir HCL [Valtrex] 500 mg PO DAILY 07/03/18 [History] ARIPiprazole [Abilify] 5 mg PO HS 11/11/20 [History] Gabapentin 600 mg PO BID 11/11/20 [History] Sodium Bicarbonate Tab 650 mg PO BID 11/11/20 [History] Docusate [Colace] 100 mg PO DAILY 10/26/21 [History] Acetaminophen Tab [Tylenol Tab] 1,000 mg PO Q6HR PRN #30 tablet 03/01/22 [Rx] Omeprazole [PriLOSEC] 40 mg PO DAILY #30 cap 03/01/22 [Rx] Ondansetron Odt [Zofran Odt] 4 mg PO Q8HR PRN #9 tab 03/01/22 [Rx] Simethicone 40 mg/0.6 ml Drops [Mylicon Drops] 40 mg PO PCHS PRN #30 ml 03/01/22 [Rx] bisacodyL [Dulcolax] 5 mg PO DAILY PRN #10 tab 03/01/22 [Rx] [facility] up [facility]ment(s[facility] [place] [facility] [place] [facility]03[facility] 9:00 am Patient Instructions/Handouts: Nutrition after Bariatric Surgery (GEN), Laparoscopic Sleeve Gastrectomy (DC), *Surgery [facility] - Managing Your Pain After S urgery Without Opioids Activity/Diet/Wound Care/Special Instructions: Liquid diet only for 2 weeks until March 11 May Shower. No soaking in bath tubs 2 weeks until March 11 Continue to use incentive spirometry to prevent pneumonias. Please continue to ambulate at home to prevent blood clots in legs. Please notify your surgeon if you develop nausea and vomiting including new onset of abdominal pain. No lifting over 4 pounds in 4 weeks, March 30 Drink 64 oz of fluid daily. Start protein shakes on . Notify bariatric center for temp over 101.0, increased pain, drainage from incisions. No straws or carbonated beverages. Liquid diet only. Sugar content should be less than 6 g to avoid dumping syndrome. Take MOM for constipation. CRUSH, OPEN, OR CUT TABLETS LARGER THAN A SIZE OF A TIC TAC Discharge Disposition: HOME SELF-CARE
== END 2022-03-01 10:00 | disposition home or self-care (01) ==
LOC: OR 12:01 → 4SSUR 15:45 → OR 02-28 08:33 → 4SSUR 02-28 08:33
PROVIDERS: ADMIT Surgery Plastic and Reconstructive Surgery; ATTEND Surgery Plastic and Reconstructive Surgery
DX: E66.01 Morbid (severe) obesity due to excess calories (principal); Z68.37 Body mass index [BMI] 37.0-37.9, adult; R16.0 Hepatomegaly, not elsewhere classified; E87.5 Hyperkalemia; G47.33 Obstructive sleep apnea (adult) (pediatric); M17.0 Bilateral primary osteoarthritis of knee; M47.9 Spondylosis, unspecified; I11.9 Hypertensive heart disease without heart failure; E78.5 Hyperlipidemia, unspecified; M16.0 Bilateral primary osteoarthritis of hip; K21.9 Gastro-esophageal reflux disease without esophagitis; E11.40 Type 2 diabetes mellitus with diabetic neuropathy, unspecified; E07.9 Disorder of thyroid, unspecified; F32.A Depression, unspecified; F41.9 Anxiety disorder, unspecified; Z87.891 Personal history of nicotine dependence; Z79.899 Other long term (current) drug therapy; Z79.890 Hormone replacement therapy; Z88.0 Allergy status to penicillin; Z88.1 Allergy status to other antibiotic agents; Z88.2 Allergy status to sulfonamides
CPT/HCPCS: 97161; 81025; 86900; 86901; 80051; 80053; 82310; 82565; 83735; 84100; 84520; 85025; 85027; 86850; 88307; 74240; 36415; 43775; G0378 ×2; C1762; J1200; J1100 ×4; J3250 ×2; J0690 ×2; J2405 ×3; J1650 ×2; J0131 ×2; C9113 ×3; J1170; Q9967; J3010 ×2; J1790

== ENCOUNTER → 2022-03-28 | Outpatient (CLI) | payer BC ==
[2022-03-28 18:35] LABS: HCT 43.1 % (37.2-46.3); MCH 27.6 pg (27.0-32.0); MCHC 30.2 g/dL (32.0-37.0); MCV 91.5 fL (80.0-97.0); Mean Platelet Volume 10.5 fL (9.5-12.2); NRBC Per 100 WBC 0 /100 WBCS (0.0-0.0); Platelet Count 337 X 10*3/uL (140-440); RBC 4.71 X 10*6/uL (4.10-5.20); RDW 13.4 % (11.5-14.5); WBC 3.84 X 10*3/uL (4.50-10.00)
[2022-03-28 19:55] LABS: % Iron Saturation 12.73 (12.00-45.00); ALT 54 U/L (8-44); AST 27 U/L (13-35); African American GFR (CKD) 85.3 (60.0-200.0); Albumin 4.1 g/dL (3.8-4.9); Albumin/Globulin Ratio 1.86 (1.60-3.17); Alkaline Phosphatase 56 U/L (41-126); BUN/Creat Ratio 15.01 Ratio (12.00-20.00); Blood Urea Nitrogen 13.9 mg/dL (9.0-27.0); Calcium 9.5 mg/dL (8.7-10.3); Carbon Dioxide 22.9 mmol/L (20.0-27.5); Chloride 105 mmol/L (96-109); Globulin 2.2 g/dL (1.6-3.3); Glucose 85 mg/dL (70-110); Iron 35 ug/dL (50-170); Magnesium 1.9 mg/dL (1.5-2.4); Non-African American GFR(CKD) 73.6 (60.0-200.0); Phosphorus 3.6 mg/dL (2.4-5.1); Potassium 4.5 mmol/L (3.5-5.5); Sodium 142 mmol/L (135-145); Total Iron Binding Capacity 277 ug/dL (228-460); Total Protein 6.3 g/dL (6.2-8.2)
[2022-03-28 20:06] LABS: Chol/HDL Ratio 6.01 Ratio; LDL Cholesterol,Calculated 166.2 mg/dL (0.0-131.0)
[2022-03-28 20:08] LABS: INR 0.94 (0.90-1.11); Prothrombin Time 10.7 sec (9.9-11.9)
[2022-03-29 11:58] LABS: Zinc, Serum 81 ug/dL (60-130)
== END | disposition home or self-care (01) ==
LOC: LABWHC1 11:15
PROVIDERS: ATTEND Surgery Plastic and Reconstructive Surgery
DX: E89.1 Postprocedural hypoinsulinemia (principal); E66.01 Morbid (severe) obesity due to excess calories; D50.8 Other iron deficiency anemias; K91.2 Postsurgical malabsorption, not elsewhere classified; E44.0 Moderate protein-calorie malnutrition; E45 Retarded development following protein-calorie malnutrition; E55.9 Vitamin D deficiency, unspecified; K74.1 Hepatic sclerosis; N19 Unspecified kidney failure; T56.894A Toxic effect of other metals, undetermined, initial encounter; K50.90 Crohn's disease, unspecified, without complications
CPT/HCPCS: 36415; 80053; 80061; 82306; 82525; 82607; 82746; 83540; 83550; 83735; 83970; 84100; 84134; 84255; 84425; 84443; 84590; 84630; 85027; 85610; 85730

== ENCOUNTER → 2022-03-30 | Outpatient (CLI) | payer BC | END | disposition home or self-care (01) | LOC: LABWHC1 15:43 | PROVIDERS: ATTEND Surgery Plastic and Reconstructive Surgery | DX: K90.89 Other intestinal malabsorption (principal); E66.01 Morbid (severe) obesity due to excess calories | CPT/HCPCS: 36415; 85730 ==

== ENCOUNTER → 2022-04-12 | Outpatient (CLI) | payer BC ==
[2022-04-12 16:02] VITALS: BP 116/63; PULSE 78; TEMP 98.3; BMI 32.4
--- NOTE | 2022-04-12 16:32 | P.BASOAP ---
Subjective Progress Note Date: 04/12/22 Patient reports doing well. No reports of heartburn and reflux and indigestion. Protein intake subpar. Recommend at least 75 g daily. Start multivitamin. Bariatric labs of 5. Follow-up her protocol. Objective - Vital Signs Vital signs: Vital Signs Temp 98.3 F 04/12/22 15:57 Pulse 78 04/12/22 15:57 Resp BP 116/63 04/12/22 15:57 Pulse Ox FiO2 Intake & Output 04/11/22 04/12/22 04/12/22 18:59 06:59 18:59 Weight 93.894 kg Assessment/Plan Plan: Date: 04/12/22 Initial Weight: Initial BMI: Current Weight: 93.894 kg Current BMI: 32.4 Type of Surgery: Total Volume in Band: Previous Volume: Volume Removed: Volume Added: Band Size:
== END ==
LOC: BARWHC3 15:45
PROVIDERS: ATTEND Surgery Plastic and Reconstructive Surgery
DX: Z71.3 Dietary counseling and surveillance (principal); E66.01 Morbid (severe) obesity due to excess calories; Z68.32 Body mass index [BMI] 32.0-32.9, adult; Z88.0 Allergy status to penicillin; Z88.1 Allergy status to other antibiotic agents; Z88.2 Allergy status to sulfonamides; Z87.891 Personal history of nicotine dependence
CPT/HCPCS: 97803; 99211

== ENCOUNTER → 2022-06-07 | Outpatient (CLI) | payer BC ==
[2022-06-07 16:48] VITALS: BP 118/60; PULSE 66; TEMP 98.5; BMI 29.9
--- NOTE | 2022-06-07 17:16 | P.BASOAP ---
Subjective Progress Note Date: 06/07/22 She is losing hair. No fatigue. No dysphagia. No abdominal pain. SHe has sleeve. Needs labs Objective - Vital Signs Vital signs: Vital Signs Temp 98.5 F 06/07/22 16:46 Pulse 66 06/07/22 16:46 Resp BP 118/60 06/07/22 16:46 Pulse Ox FiO2 Intake & Output 06/06/22 06/07/22 06/07/22 18:59 06:59 18:59 Weight 86.636 kg Assessment/Plan Plan: Date: 06/07/22 Initial Weight: Initial BMI: Current Weight: 86.636 kg Current BMI: 29.9 Type of Surgery: Total Volume in Band: Previous Volume: Volume Removed: Volume Added: Band Size:
== END ==
LOC: BARWHC3 15:51
PROVIDERS: ATTEND Surgery Plastic and Reconstructive Surgery
DX: E66.01 Morbid (severe) obesity due to excess calories (principal); Z88.1 Allergy status to other antibiotic agents; Z88.0 Allergy status to penicillin; Z88.2 Allergy status to sulfonamides; Z87.891 Personal history of nicotine dependence
CPT/HCPCS: 99211

== ENCOUNTER → 2022-06-20 | Outpatient (CLI) | payer BC ==
[2022-06-20 12:58] LABS: INR 0.9 (<1.2); Partial Thromboplastin Time 23.3 sec (22.0-30.0); Prothrombin Time 10.1 sec (9.0-12.0)
[2022-06-20 15:46] LABS: HGB 13.2 g/dL (12.0-15.0); MCV 90.2 fL (80.0-97.0); Mean Platelet Volume 10.4 fL (9.5-12.2); NRBC Per 100 WBC 0 /100 WBCS (0.0-0.0); Platelet Count 367 X 10*3/uL (140-440); RBC 4.88 X 10*6/uL (4.10-5.20); RDW 13.9 % (11.5-14.5); WBC 6.14 X 10*3/uL (4.50-10.00)
[2022-06-20 17:27] LABS: % Iron Saturation 32.02 (12.00-45.00); ALT 48 U/L (8-44); AST 24 U/L (13-35); African American GFR (CKD) 101.8 (60.0-200.0); Albumin 4.6 g/dL (3.8-4.9); Albumin/Globulin Ratio 1.84 (1.60-3.17); Alkaline Phosphatase 52 U/L (41-126); BUN/Creat Ratio 13.75 Ratio (12.00-20.00); Calcium 9.5 mg/dL (8.7-10.3); Carbon Dioxide 27.4 mmol/L (20.0-27.5); Chloride 104 mmol/L (96-109); Ferritin 63.8 ng/mL (10.0-291.0); Globulin 2.5 g/dL (1.6-3.3); Glucose 94 mg/dL (70-110); Iron 104 ug/dL (50-170); Magnesium 2.2 mg/dL (1.5-2.4); Non-African American GFR(CKD) 87.8 (60.0-200.0); Phosphorus 3.5 mg/dL (2.4-5.1); Potassium 4.3 mmol/L (3.5-5.5); Sodium 142 mmol/L (135-145); Total Iron Binding Capacity 325 ug/dL (228-460); Total Protein 7.1 g/dL (6.2-8.2)
[2022-06-20 17:46] LABS: Chol/HDL Ratio 3.06 Ratio; LDL Cholesterol,Calculated 97.3 mg/dL (0.0-131.0); Prealbumin 25.4 mg/dL (18.0-42.0)
[2022-06-21 15:03] LABS: Zinc, Serum 76 ug/dL (60-130)
== END | disposition home or self-care (01) ==
LOC: LABWHC1 12:09
PROVIDERS: ATTEND Surgery Plastic and Reconstructive Surgery
DX: E66.01 Morbid (severe) obesity due to excess calories (principal); E89.1 Postprocedural hypoinsulinemia; D50.8 Other iron deficiency anemias; K91.2 Postsurgical malabsorption, not elsewhere classified; E44.0 Moderate protein-calorie malnutrition; E45 Retarded development following protein-calorie malnutrition; E44.1 Mild protein-calorie malnutrition; E46 Unspecified protein-calorie malnutrition; E55.9 Vitamin D deficiency, unspecified; K74.1 Hepatic sclerosis; N19 Unspecified kidney failure; T56.894A Toxic effect of other metals, undetermined, initial encounter; K50.90 Crohn's disease, unspecified, without complications
CPT/HCPCS: 36415; 80053; 80061; 82306; 82525; 82607; 82728; 82746; 83540; 83550; 83735; 83970; 84100; 84134; 84255; 84425; 84443; 84590; 84630; 85027; 85610; 85730

== ENCOUNTER 2022-06-28 21:42 | Emergency (ER) | payer BC ==
[2022-06-28 22:18] VITALS: RESP 14; TEMP 97.7
[2022-06-28 22:49] LABS: Basophils % (A) 1 %; Eosinophils # (A) 0.1 k/uL (0-0.7); Eosinophils % (A) 2 %; HCT 40.7 % (34.0-46.0); HGB 13.1 gm/dL (11.4-16.0); Lymphocytes # (A) 2.1 k/uL (1.0-4.8); Lymphocytes % (A) 32 %; MCH 28.6 pg (25.0-35.0); MCHC 32.2 g/dL (31.0-37.0); Mean Platelet Volume 7.8; Monocytes # (A) 0.3 k/uL (0-1.0); Monocytes % (A) 5 %; Neutrophils # (A) 3.8 k/uL (1.3-7.7); Neutrophils % (A) 59 %; Platelet Count 301 k/uL (150-450); RBC 4.58 m/uL (3.80-5.40); RDW 13.3 % (11.5-15.5); WBC 6.5 k/uL (3.8-10.6)
[2022-06-28 23:15] LABS: ALT 38 U/L (4-34); AST 26 U/L (14-36); African American GFR (CKD) >90 (>60 ml/min/1.73 sqM); Albumin 4.5 g/dL (3.5-5.0); Alkaline Phosphatase 49 U/L (38-126); Amylase 43 U/L (30-110); Anion Gap 8 mmol/L; Blood Urea Nitrogen 16 mg/dL (7-17); Calcium 9.1 mg/dL (8.4-10.2); Carbon Dioxide 26 mmol/L (22-30); Chloride 105 mmol/L (98-107); Glucose 90 mg/dL (74-99); Lipase 119 U/L (23-300); Non-African American GFR(CKD) >90 (>60 ml/min/1.73 sqM); Sodium 139 mmol/L (137-145); Total Bilirubin 0.4 mg/dL (0.2-1.3); Total Protein 7.3 g/dL (6.3-8.2)
[2022-06-29 00:39] VITALS: BP 126/63; PULSE 62
--- NOTE | 2022-06-29 01:10 | ED ---
General Adult HPI - General Chief complaint: Vaginal Bleeding Stated complaint: Vaginal Bleeding Time Seen by Provider: 06/28/22 23:52 Source: patient, RN notes reviewed, old records reviewed Mode of arrival: ambulatory Limitations: no limitations - History of Present Illness Initial comments: 46-year-old female who presents for evaluation of vaginal bleeding and lower pelvic cramping. Patient denies current . Patient is currently being treated by livestock farm workers for abnormal vaginal bleeding. She states that she has had heavy bleeding for the past 12 hours. She had normal menstrual cycle bleeding the 24 hours preceding this PG states that she had some very light bleeding earlier in the month. Patient states she has passed several large blood clots and has been using a tampon every hour for the past several hours. - Related Data Home Medications Medication Instructions Recorded Confirmed DULoxetine HCL [Cymbalta] 60 mg PO QAM 07/03/18 06/07/22 Levothyroxine Sodium [Synthroid] 75 mcg PO QAM 07/03/18 06/07/22 Loratadine [Claritin] 10 mg PO DAILY 07/03/18 06/07/22 valACYclovir HCL [Valtrex] 500 mg PO DAILY 07/03/18 06/07/22 ARIPiprazole [Abilify] 5 mg PO HS 11/11/20 06/07/22 Gabapentin 600 mg PO BID 11/11/20 06/07/22 Sodium Bicarbonate Tab 650 mg PO BID 11/11/20 06/07/22 Docusate [Colace] 100 mg PO DAILY 10/26/21 06/07/22 Mv-Min/Folic/Vit K/Lut/[id number] 1 each PO DAILY 06/07/22 06/07/22 [Alive Women's 50 Plus Tablet] Previous Rx's Medication Instructions Recorded bisacodyL [Dulcolax] 5 mg PO DAILY PRN #10 tab 03/01/22 Allergies Allergy/AdvReac Type Severity Reaction Status Date / Time levofloxacin [From Levaquin] Allergy Rash/Hives Verified 03/03/22 09:36 Penicillins Allergy Rash/Hives Verified 03/03/22 09:36 Quinolones Allergy Rash/Hives Verified 03/03/22 09:36 sulfamethoxazole Allergy Rash/Hives Verified 03/03/22 09:36 [From Bactrim] trimethoprim [From Bactrim] Allergy Rash/Hives Verified 03/03/22 09:36 Review of Systems ROS Statement: Those systems with pertinent positive or pertinent negative responses have been documented in the HPI. ROS Other: All systems not noted in ROS Statement are negative. Past Medical History Past Medical History: Diabetes Mellitus, Hyperlipidemia, Sleep Apnea/CPAP/BIPAP, Thyroid Disorder Additional Past Medical History / Comment(s): hx rectal bleeding hx fissures,polycystic kidney disease, neuropathy hands/feet, diet control diabetic History of Any Multi-Drug Resistant Organisms: None Reported Past Surgical History: Back Surgery Additional Past Surgical History / Comment(s): lamicectomies x2,bunionectomy,rt shoulder surgery,bridger knees arthroscopy Past Anesthesia/Blood Transfusion Reactions: Motion Sickness, Postoperative Nausea & Vomiting (PONV) Additional Past Anesthesia/Blood Transfusion Reaction / Comment(s): no hx blood transfusion Past Psychological History: Anxiety, Depression Smoking Status: Former smoker Past Alcohol Use History: Occasional Past Drug Use History: None Reported - Past Family History Mother Family Medical History: No Reported History General Exam Limitations: no limitations General appearance: alert, in no apparent distress Head exam: Present: atraumatic, normocephalic Eye exam: Present: normal appearance, PERRL ENT exam: Present: normal exam Neck exam: Present: normal inspection. Absent: tenderness, meningismus Respiratory exam: Present: normal lung sounds bilaterally. Absent: respiratory distress, wheezes Cardiovascular Exam: Present: regular rate, normal rhythm GI/Abdominal exam: Present: soft. Absent: distended, tenderness, guarding, rebound External exam: Present: normal external exam Speculum exam: Present: vaginal bleeding, other (Small amount of pooling blood. No large clots. The cervix was only partially visualized). Absent: vaginal discharge, foreign body By manual exam: Absent: cervical motion tenderness, uterine tenderness Extremities exam: Present: normal inspection Neurological exam: Present: alert, oriented X3 Psychiatric exam: Present: normal affect, normal mood Skin exam: Present: warm, dry, intact. Absent: cyanosis, diaphoretic, pallor Course Vital Signs 06/28/22 06/29/22 22:14 00:34 Temperature 97.7 F Pulse Rate 70 62 Respiratory 14 Rate Blood Pressure 155/97 126/63 O2 Sat by Pulse 98 95 Oximetry Medical Decision Making - Medical Decision Making Was pt. sent in by a medical professional or institution (Dr., PA, TRAIN STATION AGENT, urgent care, hospital, or half-way...) When possible be specific @ -No Did you speak to anyone other than the patient for history (EMS, parent, family, police, friend...)? What history was obtained from this source @ -No Did you review nursing and triage notes (agree or disagree)? Why? @ -I reviewed and agree with nursing and triage notes Were old charts reviewed (outside hosp., previous admission, EMS record, old EKG, old radiological studies, urgent care reports/EKG's, half-way records)? Report findings @ -No old charts were reviewed Differential Diagnosis (chest pain, altered mental status, abdominal pain women, abdominal pain men, vaginal bleeding, weakness, fever, dyspnea, syncope, headache, dizziness, GI bleed, back pain, seizure, CVA, palpatations, mental health, musculoskeletal)? @ -Differential Vaginal Bleeding: Spontaneous , threatened , molar , ectopic , bloody show, incompetent cervix, abruptioplacenta, placenta previa, uterine rupture, dysfunctional uterine bleeding, hemorrhage, uterine fibroids, this is not meant to be an all-inclusive list. EKG interpreted by me (3pts min.). @ -As above X-rays interpreted by me (1pt min.). @ -None done CT interpreted by me (1pt min.). @ -None done U/S interpreted by me (1pt. min.). @ -None done What testing was considered but not performed or refused? (CT, X-rays, U/S, labs)? Why? @ -None What meds were considered but not given or refused? Why? @ -None Did you discuss the management of the patient with other professionals (professionals i.e. ALICIA Flores, TRAIN STATION AGENT, lab, RT, psych nurse, social work nurse, commanding officer traffic division, teacher, mounted police officer, briefcase sewer)? Give summary @ -No Was smoking cessation discussed for >3mins.? @ -No Was critical care preformed (if so, how long)? @ -No Were there social determinants of health that impacted care today? How? (Homelessness, low income, unemployed, alcoholism, drug addiction, transportation, low edu. Level, literacy, decrease access to med. care, nursing home, rehab)? @ -No Was there de-escalation of care discussed even if they declined (Discuss DNR or withdrawal of care, Hospice)? DNR status @ -No What co-morbidities impacted this encounter? (DM, HTN, Smoking, COPD, CAD, Cancer, CVA, ARF, Chemo, Hep., AIDS, mental health diagnosis, sleep apnea, morbid obesity)? @ -None Was patient admitted / discharged? Hospital course, mention meds given and route, prescriptions, significant lab abnormalities, going to OR and other pertinent info. @ -This is a 46 yo female with heavy vaginal bleeding. She denies current . She is following with a livestock farm workers. She has no significant hemorrhage on examination. No abdominal tenderness. Stable hemoglobin, stable vitals. I instructed the patient to contact her livestock farm workers in the morning. Return parameters discussed at length. Undiagnosed new problem with uncertain prognosis? @ -No Drug Therapy requiring intensive monitoring for toxicity (Heparin, Nitro, Insulin, Cardizem)? @ -No Were any procedures done? @ -No Diagnosis/symptom? @ -[Vaginal bleeding Acute, or Chronic, or Acute on Chronic? @ -Acute Uncomplicated (without systemic symptoms) or Complicated (systemic symptoms)? @ -Uncomplicated Side effects of treatment? @ -No Exacerbation, Progression, or Severe Exacerbation? @ -No Poses a threat to life or bodily function? How? (Chest pain, USA, [place], pneumonia, PE, COPD, DKA, ARF, appy, cholecystitis, CVA, Diverticulitis, Homicidal, Suicidal, threat to staff... and all critical care pts) @ -Acute blood loss anemia, hemorrhagic shock. - Lab Data Result diagrams: 06/28/22 22:34 06/28/22 22:34 Lab Results 06/28/22 06/28/22 Range/Units 22:34 22:34 WBC 6.5 (3.8-10.6) k/uL RBC 4.58 (3.80-5.40) m/uL Hgb 13.1 (11.4-16.0) gm/dL Hct 40.7 (34.0-46.0) % MCV 89.0 (80.0-100.0) fL MCH 28.6 (25.0-35.0) pg MCHC 32.2 (31.0-37.0) g/dL RDW 13.3 (11.5-15.5) % Plt Count 301 (150-450) k/uL MPV 7.8 Neutrophils % 59 % Lymphocytes % 32 % Monocytes % 5 % Eosinophils % 2 % Basophils % 1 % Neutrophils # 3.8 (1.3-7.7) k/uL Lymphocytes # 2.1 (1.0-4.8) k/uL Monocytes # 0.3 (0-1.0) k/uL Eosinophils # 0.1 (0-0.7) k/uL Basophils # 0.0 (0-0.2) k/uL Sodium 139 (137-145) mmol/L Potassium 4.0 (3.5-5.1) mmol/L Chloride 105 (98-107) mmol/L Carbon Dioxide 26 (22-30) mmol/L Anion Gap 8 mmol/L BUN 16 (7-17) mg/dL Creatinine 0.77 (0.52-1.04) mg/dL Est GFR (CKD-EPI)AfAm >90 (>60 ml/min/1.73 sqM) Est GFR (CKD-EPI)NonAf >90 (>60 ml/min/1.73 sqM) Glucose 90 (74-99) mg/dL Calcium 9.1 (8.4-10.2) mg/dL Total Bilirubin 0.4 (0.2-1.3) mg/dL AST 26 (14-36) U/L ALT 38 H (4-34) U/L Alkaline Phosphatase 49 (38-126) U/L Total Protein 7.3 (6.3-8.2) g/dL Albumin 4.5 (3.5-5.0) g/dL Amylase 43 (30-110) U/L Lipase 119 (23-300) U/L Disposition Clinical Impression: Dysfunctional uterine bleeding Disposition: HOME SELF-CARE Condition: Good Instructions (If sedation given, give patient instructions): Abnormal (Dysfunctional) Uterine Bleeding (ED) Additional Instructions: Please follow up with your livestock farm workers in the next 24-48 hours. Is patient prescribed a controlled substance at d/c from ED?: No Referrals: Shiela Mcallister MD [Primary Care Provider] - 1-2 days Time of Disposition: 01:10
== END 2022-06-29 01:20 | disposition home or self-care (01) ==
LOC: EC 21:42
DX: N93.8 Other specified abnormal uterine and vaginal bleeding (principal); E11.40 Type 2 diabetes mellitus with diabetic neuropathy, unspecified; E07.9 Disorder of thyroid, unspecified; F41.9 Anxiety disorder, unspecified; F32.A Depression, unspecified; Z87.891 Personal history of nicotine dependence; Z88.0 Allergy status to penicillin; Z88.1 Allergy status to other antibiotic agents; Z88.2 Allergy status to sulfonamides; Z79.899 Other long term (current) drug therapy; Z79.890 Hormone replacement therapy
CPT/HCPCS: 36415; 80053; 82150; 83690; 85025; 86850; 86900; 86901; 99284

== ENCOUNTER → 2022-09-13 | Outpatient (CLI) | payer BC ==
[2022-09-13 11:51] LABS: Partial Thromboplastin Time 24.2 sec (22.0-30.0); Prothrombin Time 10.4 sec (9.0-12.0)
[2022-09-13 16:12] LABS: HCT 43.1 % (37.2-46.3); HGB 13.3 d/dL (12.0-15.0); MCH 28.4 pg (27.0-32.0); MCHC 30.9 d/dL (32.0-37.0); MCV 91.9 FL (80.0-97.0); Mean Platelet Volume 9.9 FL (9.5-12.2); NRBC Per 100 WBC 0 X 10*3/uL (0.00-0.01); Platelet Count 312 X 10*3/uL (140-440); RBC 4.69 X 10*6/uL (4.10-5.20); RDW 13.7 % (11.5-14.5); WBC 5.25 X 10*3/uL (4.50-10.00)
[2022-09-13 17:05] LABS: % Iron Saturation 28.24 (12.00-45.00); ALT 25 U/L (8-44); AST 16 U/L (13-35); Albumin 4.3 d/dL (3.8-4.9); Albumin/Globulin Ratio 1.87 Ratio (1.60-3.17); Alkaline Phosphatase 56 U/L (41-126); Blood Urea Nitrogen 17.1 mg/dL (9.0-27.0); Carbon Dioxide 25.1 mmol/L (21.6-31.8); Chloride 106 mmol/L (96-109); Chol/HDL Ratio 2.83 Ratio; Ferritin 40.2 ng/mL (10.0-291.0); Globulin 2.3 d/dL (1.6-3.3); Glucose 93 mg/dL (70-110); Iron 96 UG/DL (50-170); LDL Cholesterol,Calculated 99.5 mg/dL (0.0-131.0); Magnesium 2.1 mg/dL (1.5-2.4); Phosphorus 3.1 mg/dL (2.4-5.1); Potassium 4.7 mmol/L (3.5-5.5); Sodium 141 mmol/L (135-145); Total Bilirubin 0.4 mg/dL (0.3-1.2); Total Iron Binding Capacity 340 UG/DL (228-460); Total Protein 6.6 d/dL (6.2-8.2)
[2022-09-13 17:11] LABS: Prealbumin 23.2 mg/dL (18.0-42.0)
[2022-09-15 08:40] LABS: Zinc, Serum 66 ug/dL (60-130)
[2022-09-15 10:45] LABS: Vitamin A 63 ug/dL (38-106)
== END | disposition home or self-care (01) ==
LOC: LABWHC1 10:55
PROVIDERS: ATTEND Surgery Plastic and Reconstructive Surgery
DX: E66.01 Morbid (severe) obesity due to excess calories (principal); K91.2 Postsurgical malabsorption, not elsewhere classified; E44.0 Moderate protein-calorie malnutrition; E44.1 Mild protein-calorie malnutrition; E45 Retarded development following protein-calorie malnutrition; E55.9 Vitamin D deficiency, unspecified; K74.1 Hepatic sclerosis; N19 Unspecified kidney failure; T56.894A Toxic effect of other metals, undetermined, initial encounter
CPT/HCPCS: 36415; 80053; 80061; 82306; 82525; 82607; 82728; 82746; 83036; 83540; 83550; 83735; 83970; 84100; 84134; 84255; 84425; 84443; 84590; 84630; 85027; 85610; 85730

== ENCOUNTER 2023-01-23 13:05 | Emergency (ER) | payer BC ==
[2023-01-23 13:34] VITALS: RESP 16
[2023-01-23 13:42] LABS: Basophils % (A) 0 %; Eosinophils % (A) 1 %; HCT 41.8 % (34.0-46.0); HGB 13.7 gm/dL (11.4-16.0); Lymphocytes # (A) 1.7 k/uL (1.0-4.8); Lymphocytes % (A) 27 %; MCH 29.8 pg (25.0-35.0); MCHC 32.7 g/dL (31.0-37.0); Mean Platelet Volume 7.5; Monocytes # (A) 0.2 k/uL (0-1.0); Monocytes % (A) 4 %; Neutrophils # (A) 4.2 k/uL (1.3-7.7); Neutrophils % (A) 67 %; Platelet Count 351 k/uL (150-450); RBC 4.59 m/uL (3.80-5.40); RDW 12.6 % (11.5-15.5); WBC 6.2 k/uL (3.8-10.6)
[2023-01-23] MEDS ORDERED: MAG HYDROX/AL HYDROX/SIMETH 30 ML, HYOSCYAMINE ELIXIR 10 ML, LIDOCAINE VISCOUS 2% 10 ML PO STA ×3 (13:47)
--- NOTE | 2023-01-23 13:51 | ED ---
General Adult HPI - General Chief complaint: Chest Pain Stated complaint: Chest Pain Time Seen by Provider: 01/23/23 13:20 Source: patient, RN notes reviewed, old records reviewed Mode of arrival: ambulatory Limitations: no limitations - History of Present Illness Initial comments: This is a 47-year-old female presents emergency Department stating since yesterday she's been having some chest pain. Patient states the pain is sharp in nature and lasts about 3-4 seconds. Patient states she also had some gastric reflux which he normally doesn't have. Patient states the pain goes away completely after 3-4 seconds and then returns a little while later. Patient denies any shortness of breath. Patient denies any palpitation. Patient denies any back pain. Patient denies any radiation of the pain. Patient denies headache patient denies numbness weakness. Patient denies any any palpitations. Patient denies abdominal pain patient denies any nausea vomiting diarrhea. Patient denies any recent fever chills or cough currently patient is not having any symptoms - Related Data Home Medications Medication Instructions Recorded Confirmed DULoxetine HCL [Cymbalta] 60 mg PO QAM 07/03/18 09/06/22 Levothyroxine Sodium [Synthroid] 75 mcg PO QAM 07/03/18 09/06/22 Loratadine [Claritin] 10 mg PO DAILY 07/03/18 09/06/22 valACYclovir HCL [Valtrex] 500 mg PO DAILY 07/03/18 09/06/22 ARIPiprazole [Abilify] 5 mg PO HS 11/11/20 09/06/22 Gabapentin 600 mg PO BID 11/11/20 09/06/22 Sodium Bicarbonate Tab 650 mg PO BID 11/11/20 09/06/22 Docusate [Colace] 100 mg PO DAILY 10/26/21 09/06/22 Mv-Min/Folic/Vit K/Lut/[id number] 1 each PO DAILY 06/07/22 09/06/22 [Alive Women's 50 Plus Tablet] Previous Rx's Medication Instructions Recorded bisacodyL [Dulcolax] 5 mg PO DAILY PRN #10 tab 03/01/22 Allergies Allergy/AdvReac Type Severity Reaction Status Date / Time levofloxacin [From Levaquin] Allergy Rash/Hives Verified 03/03/22 09:36 Penicillins Allergy Rash/Hives Verified 03/03/22 09:36 Quinolones Allergy Rash/Hives Verified 03/03/22 09:36 sulfamethoxazole Allergy Rash/Hives Verified 03/03/22 09:36 [From Bactrim] trimethoprim [From Bactrim] Allergy Rash/Hives Verified 03/03/22 09:36 Review of Systems ROS Statement: Those systems with pertinent positive or pertinent negative responses have been documented in the HPI. ROS Other: All systems not noted in ROS Statement are negative. Past Medical History Past Medical History: Diabetes Mellitus, Hyperlipidemia, Sleep Apnea/CPAP/BIPAP, Thyroid Disorder Additional Past Medical History / Comment(s): hx rectal bleeding hx fissur es,polycystic kidney disease, neuropathy hands/feet, diet control diabetic History of Any Multi-Drug Resistant Organisms: None Reported Past Surgical History: Back Surgery, Bariatric Surgery Additional Past Surgical History / Comment(s): lamicectomies x2,bunionectomy,rt shoulder surgery,bridger knees arthroscopy, gastric sleeve 02/27/22 Past Anesthesia/Blood Transfusion Reactions: Motion Sickness, Postoperative Nausea & Vomiting (PONV) Additional Past Anesthesia/Blood Transfusion Reaction / Comment(s): no hx blood transfusion Past Psychological History: Anxiety, Depression Smoking Status: Former smoker Past Alcohol Use History: Occasional Past Drug Use History: None Reported - Past Family History Mother Family Medical History: No Reported History General Exam - General Exam Comments Initial Comments: GENERAL: Patient is well-developed and well-nourished. Patient is nontoxic and well- hydrated and is in no acute distress. ENT: Neck is soft and supple. No significant lymphadenopathy is noted. Oropharynx is clear. Moist mucous membranes. Neck has full range of motion without eliciting any pain. EYES: The sclera were anicteric and conjunctiva were pink and moist. Extraocular movements were intact and pupils were equal round and reactive to light. Eyelids were unremarkable. PULMONARY: Unlabored respirations. Good breath sounds bilaterally. No audible rales rhonchi or wheezing was noted. CARDIOVASCULAR: There is a regular rate and rhythm without any murmurs gallops or rubs. Nonreproducible the pain occurred while standing there talking to her lasted approximately 3 seconds. ABDOMEN: Soft and nontender with normal bowel sounds. SKIN: Skin is clear with no lesions or rashes and otherwise unremarkable. NEUROLOGIC: Patient is alert and oriented x3. Cranial nerves II through XII are grossly intact. Motor and sensory are also intact. Normal speech, volume and content. Symmetrical smile. MUSCULOSKELETAL: Normal extremities with adequate strength and full range of motion. No lower extremity swelling or edema. No calf tenderness. LYMPHATICS: No significant lymphadenopathy is noted PSYCHIATRIC: Normal psychiatric evaluation. Limitations: no limitations Course Vital Signs 01/23/23 13:08 Temperature 98.4 F Pulse Rate 80 Respiratory 16 Rate Blood Pressure 146/71 O2 Sat by Pulse 100 Oximetry Medical Decision Making - Medical Decision Making EKG is interpreted by myself. EKG shows a sinus rhythm at 74 bpm KS interval 226 QRS is 86 QT interval 381 QTC is 408. Patient's EKG shows no ST segment elevation or depression. Was pt. sent in by a medical professional or institution (ALICIA Flores, EMPLOYMENT LEGAL ASSISTANT, urgent care, hospital, or [facility]...) When possible be specific @ -No Did you speak to anyone other than the patient for history (EMS, parent, family, police, friend...)? What history was obtained from this source @ -No Did you review nursing and triage notes (agree or disagree)? Why? @ -I reviewed and agree with nursing and triage notes Were old charts reviewed (outside hosp., previous admission, EMS record, old EKG, old radiological studies, urgent care reports/EKG's, [facility] records)? Report findings @ -No old charts were reviewed Differential Diagnosis (chest pain, altered mental status, abdominal pain women, abdominal pain men, vaginal bleeding, weakness, fever, dyspnea, syncope, headache, dizziness, GI bleed, back pain, seizure, CVA, palpatations, mental health, musculoskeletal)? @ -Differential Chest Pain: Stable Angina, Unstable Angina, STEMI, NSTEMI Aortic Dissection, Pneumothorax, Musculoskeletal, Esophageal Spasm GERD, Cholecystitis, Pancreatitis, Zoster, this is not meant to be an all-inclusive list. EKG interpreted by me (3pts min.). @ -As above X-rays interpreted by me (1pt min.). @ -Chest x-ray showed no acute abnormality CT interpreted by me (1pt min.). @ -None done U/S interpreted by me (1pt. min.). @ -None done What testing was considered but not performed or refused? (CT, X-rays, U/S, labs)? Why? @ -None What meds were considered but not given or refused? Why? @ -None Did you discuss the management of the patient with other professionals (professionals i.e. , PA, EMPLOYMENT LEGAL ASSISTANT, lab, RT, psych nurse, family welfare social work professor, showroom consultant, teacher, chief medical officer, piano case and bench assembler)? Give summary @ -No Was smoking cessation discussed for >3mins.? @ -No Was critical care preformed (if so, how long)? @ -No Were there social determinants of health that impacted care today? How? (Homelessness, low income, unemployed, alcoholism, drug addiction, transportation, low edu. Level, literacy, decrease access to med. care, long term, rehab)? @ -No Was there de-escalation of care discussed even if they declined (Discuss DNR or withdrawal of care, Hospice)? DNR status @ -No What co-morbidities impacted this encounter? (DM, HTN, Smoking, COPD, CAD, Cancer, CVA, ARF, Chemo, Hep., AIDS, mental health diagnosis, sleep apnea, morbid obesity)? @ -None Was patient admitted / discharged? Hospital course, mention meds given and route, prescriptions, significant lab abnormalities, going to OR and other pertinent info. @ -I will back and reevaluated the patient after GI cocktail she was feeling better and the pain was less frequent. After lab work came back and he actually came back and one pack and spoke with the patient she will follow-up with her primary medical care doctor. Lab work was normal x-ray was normal. EKG showed no acute abnormality.I reevaluated the patient on 2 different occasions she shows not having any pain currently but she states it did occur when I was not there. It still only lasted 2-3 seconds Undiagnosed new problem with uncertain prognosis? @ -No Drug Therapy requiring intensive monitoring for toxicity (Heparin, Nitro, Insulin, Cardizem)? @ -No Were any procedures done? @ -No Diagnosis/symptom? @ -Atypical chest pain Acute, or Chronic, or Acute on Chronic? @ -Acute Uncomplicated (without systemic symptoms) or Complicated (systemic symptoms)? @ -Complicated Side effects of treatment? @ -No Exacerbation, Progression, or Severe Exacerbation? @ -No Poses a threat to life or bodily function? How? (Chest pain, USA, [place], pneumonia, PE, COPD, DKA, ARF, appy, cholecystitis, CVA, Diverticulitis, Homicidal, Suicidal, threat to staff... and all critical care pts) @ -No Diagnosis/symptom? @ -Gastroesophageal reflux Acute, or Chronic, or Acute on Chronic? @ -Acute Uncomplicated (without systemic symptoms) or Complicated (systemic symptoms)? @ -Uncomplicated Side effects of treatment? @ -none Exacerbation, Progression, or Severe Exacerbation] @ -no Poses a threat to life or bodily function? @ -no - Lab Data Result diagrams: 01/23/23 13:31 01/23/23 13:31 Lab Results 01/23/23 01/23/23 01/23/23 Range/Units 13:31 13:31 13:31 WBC 6.2 (3.8-10.6) k/uL RBC 4.59 (3.80-5.40) m/uL Hgb 13.7 (11.4-16.0) gm/dL Hct 41.8 (34.0-46.0) % MCV 91.0 (80.0-100.0) fL MCH 29.8 (25.0-35.0) pg MCHC 32.7 (31.0-37.0) g/dL RDW 12.6 (11.5-15.5) % Plt Count 351 (150-450) k/uL MPV 7.5 Neutrophils % 67 % Lymphocytes % 27 % Monocytes % 4 % Eosinophils % 1 % Basophils % 0 % Neutrophils # 4.2 (1.3-7.7) k/uL Lymphocytes # 1.7 (1.0-4.8) k/uL Monocytes # 0.2 (0-1.0) k/uL Eosinophils # 0.0 (0-0.7) k/uL Basophils # 0.0 (0-0.2) k/uL PT 9.9 L (10.0-12.5) sec INR 0.9 (<1.2) APTT 23.0 (22.0-30.0) sec Sodium 140 (137-145) mmol/L Potassium 3.7 (3.5-5.1) mmol/L Chloride 104 (98-107) mmol/L Carbon Dioxide 24 (22-30) mmol/L Anion Gap 12 mmol/L BUN 16 (7-17) mg/dL Creatinine 0.88 (0.52-1.04) mg/dL Est GFR (CKD-EPI)AfAm >90 (>60 ml/min/1.73 sqM) Est GFR (CKD-EPI)NonAf 78 (>60 ml/min/1.73 sqM) Glucose 87 (74-99) mg/dL Calcium 9.5 (8.4-10.2) mg/dL Magnesium 1.9 (1.6-2.3) mg/dL Total Bilirubin 0.4 (0.2-1.3) mg/dL AST 31 (14-36) U/L ALT 38 H (4-34) U/L Alkaline Phosphatase 49 (38-126) U/L Troponin I (0.000-0.034) ng/mL Total Protein 7.8 (6.3-8.2) g/dL Albumin 4.7 (3.5-5.0) g/dL 01/23/23 Range/Units 13:31 WBC (3.8-10.6) k/uL RBC (3.80-5.40) m/uL Hgb (11.4-16.0) gm/dL Hct (34.0-46.0) % MCV (80.0-100.0) fL MCH (25.0-35.0) pg MCHC (31.0-37.0) g/dL RDW (11.5-15.5) % Plt Count (150-450) k/uL MPV Neutrophils % % Lymphocytes % % Monocytes % % Eosinophils % % Basophils % % Neutrophils # (1.3-7.7) k/uL Lymphocytes # (1.0-4.8) k/uL Monocytes # (0-1.0) k/uL Eosinophils # (0-0.7) k/uL Basophils # (0-0.2) k/uL PT (10.0-12.5) sec INR (<1.2) APTT (22.0-30.0) sec Sodium (137-145) mmol/L Potassium (3.5-5.1) mmol/L Chloride (98-107) mmol/L Carbon Dioxide (22-30) mmol/L Anion Gap mmol/L BUN (7-17) mg/dL Creatinine (0.52-1.04) mg/dL Est GFR (CKD-EPI)AfAm (>60 ml/min/1.73 sqM) Est GFR (CKD-EPI)NonAf (>60 ml/min/1.73 sqM) Glucose (74-99) mg/dL Calcium (8.4-10.2) mg/dL Magnesium (1.6-2.3) mg/dL Total Bilirubin (0.2-1.3) mg/dL AST (14-36) U/L ALT (4-34) U/L Alkaline Phosphatase (38-126) U/L Troponin I <0.012 (0.000-0.034) ng/mL Total Protein (6.3-8.2) g/dL Albumin (3.5-5.0) g/dL Disposition Clinical Impression: Atypical chest pain, Gastroesophageal reflux Disposition: HOME SELF-CARE Condition: Good Instructions (If sedation given, give patient instructions): Chest Pain (ED), GERD (Gastroesophageal Reflux Disease) (ED) Additional Instructions: Patient should take Pepcid twice a day for the next few days and see if that helps her symptoms. Patient should return if symptoms worsen or there are any new symptoms. Is patient prescribed a controlled substance at d/c from ED?: No Referrals: Shiela Mcallister MD [Primary Care Provider] - 1-2 days Time of Disposition: 15:15
--- NOTE | 2023-01-23 13:57 | XR ---
EXAMINATION TYPE: XR chest 2V DATE OF EXAM: 01/23/2023 COMPARISON: NONE TECHNIQUE: PA and lateral views submitted. HISTORY: Chest pain FINDINGS: The lungs are clear and there is no pneumothorax, pleural effusion, or focal pneumonia. Heart size normal and no overt failure. Osseous structures intact. Biapical pleural thickening. IMPRESSION: 1. No acute process.
[2023-01-23 13:59] LABS: ALT 38 U/L (4-34); AST 31 U/L (14-36); African American GFR (CKD) >90 (>60 ml/min/1.73 sqM); Albumin 4.7 g/dL (3.5-5.0); Alkaline Phosphatase 49 U/L (38-126); Anion Gap 12 mmol/L; Blood Urea Nitrogen 16 mg/dL (7-17); Calcium 9.5 mg/dL (8.4-10.2); Carbon Dioxide 24 mmol/L (22-30); Chloride 104 mmol/L (98-107); Glucose 87 mg/dL (74-99); Magnesium 1.9 mg/dL (1.6-2.3); Non-African American GFR(CKD) 78 (>60 ml/min/1.73 sqM); Potassium 3.7 mmol/L (3.5-5.1); Sodium 140 mmol/L (137-145); Total Bilirubin 0.4 mg/dL (0.2-1.3); Total Protein 7.8 g/dL (6.3-8.2)
[2023-01-23 14:22] LABS: INR 0.9 (<1.2); Prothrombin Time 9.9 sec (10.0-12.5)
[2023-01-23 15:13] VITALS: BP 109/74; PULSE 64; TEMP 98.1
== END 2023-01-23 15:32 | disposition home or self-care (01) ==
LOC: EC 13:05
DX: K21.9 Gastro-esophageal reflux disease without esophagitis (principal); E11.40 Type 2 diabetes mellitus with diabetic neuropathy, unspecified; E07.9 Disorder of thyroid, unspecified; F32.A Depression, unspecified; F41.9 Anxiety disorder, unspecified; Z79.890 Hormone replacement therapy; Z79.899 Other long term (current) drug therapy; Z88.0 Allergy status to penicillin; Z88.1 Allergy status to other antibiotic agents; Z88.2 Allergy status to sulfonamides; Z87.891 Personal history of nicotine dependence
CPT/HCPCS: 36415; 71046; 80053; 83735; 84484; 85025; 85610; 85730; 93005; 99285

== ENCOUNTER → 2023-03-21 | Outpatient (CLI) | payer BC ==
[2023-03-21 19:01] LABS: HCT 44.3 % (37.2-46.3); HGB 13.7 g/dL (12.0-15.0); MCH 28.4 pg (27.0-32.0); MCHC 30.9 g/dL (32.0-37.0); MCV 91.9 FL (80.0-97.0); Mean Platelet Volume 10.5 FL (9.5-12.2); NRBC Per 100 WBC 0 X 10*3/uL (0.00-0.01); Platelet Count 313 X 10*3/uL (140-440); RBC 4.82 X 10*6/uL (4.10-5.20); RDW 13.2 % (11.5-14.5); WBC 7.28 X 10*3/uL (4.50-10.00)
[2023-03-21 23:36] LABS: Prealbumin 26.6 mg/dL (18.0-42.0)
[2023-03-21 23:44] LABS: Chol/HDL Ratio 2.84 Ratio; LDL Cholesterol,Calculated 98.9 mg/dL (0.0-131.0); Phosphorus 3.1 mg/dL (2.4-5.1)
[2023-03-21 23:45] LABS: % Iron Saturation 22.16 (12.00-45.00); BUN/Creat Ratio 16.67 Ratio (12.00-20.00); Carbon Dioxide 23.7 mmol/L (21.6-31.8); Chloride 104 mmol/L (96-109); Glucose 105 mg/dL (70-110); Iron 82 UG/DL (50-170); Potassium 4.5 mmol/L (3.5-5.5); Sodium 141 mmol/L (135-145); Total Iron Binding Capacity 370 UG/DL (228-460)
[2023-03-21 23:46] LABS: ALT 57 U/L (8-44); AST 50 U/L (13-35); Albumin 4.5 g/dL (3.8-4.9); Albumin/Globulin Ratio 1.73 Ratio (1.60-3.17); Alkaline Phosphatase 57 U/L (41-126); Calcium 9.6 mg/dL (8.7-10.3); Ferritin 32.4 ng/mL (10.0-291.0); Globulin 2.6 g/dL (1.6-3.3); Total Bilirubin <0.2 mg/dL (0.3-1.2); Total Protein 7.1 g/dL (6.2-8.2)
[2023-03-22 11:30] LABS: Zinc, Serum 75 ug/dL (60-130)
[2023-03-23 06:35] LABS: Vitamin A 57 ug/dL (38-106)
[2023-03-23 06:47] LABS: Vit B1(Thiamine) 103 ug/L (38-122)
== END | disposition home or self-care (01) ==
LOC: LABPAT 14:13
PROVIDERS: ATTEND Surgery Plastic and Reconstructive Surgery
DX: E66.01 Morbid (severe) obesity due to excess calories (principal); E89.1 Postprocedural hypoinsulinemia; D50.8 Other iron deficiency anemias; K91.2 Postsurgical malabsorption, not elsewhere classified; E44.1 Mild protein-calorie malnutrition; E45 Retarded development following protein-calorie malnutrition; E46 Unspecified protein-calorie malnutrition; E44.0 Moderate protein-calorie malnutrition; E55.9 Vitamin D deficiency, unspecified; K74.1 Hepatic sclerosis; N19 Unspecified kidney failure; T56.894A Toxic effect of other metals, undetermined, initial encounter; K50.90 Crohn's disease, unspecified, without complications
CPT/HCPCS: 80053; 80061; 82306; 82525; 82607; 82728; 82746; 83036; 83540; 83550; 83735; 83970; 84100; 84134; 84255; 84425; 84443; 84590; 84630; 85027; 85730

== ENCOUNTER → 2023-03-21 | Outpatient (CLI) | payer BC ==
[2023-03-21 14:06] VITALS: BP 126/87; PULSE 84; TEMP 97.7; BMI 28.8
--- NOTE | 2023-03-21 14:06 | P.BASOAP ---
Subjective Progress Note Date: 03/21/23 DATE OF SERVICE: 03/21/23 CHIEF COMPLAINT: Status post sleeve gastrectomy HISTORY OF PRESENT ILLNESS: Chloe Lopes is a 47-year-old female status post sleeve gastrectomy . She is 1 year out. She is on thyroid medications. She feels fine. She denies gastroesophageal reflux disease. She wants to lose more weight. She is on antidepressants. No reports of abdominal pain. At height of 5 feet 7 inches, her ideal body weight is 158 pounds. Her highest weight is 237 pounds, BMI 37.3. She presents with weight of 184 pounds from 188 pounds, 6 months ago. She has lost 4 pounds in 6 months. Her body mass index 28.8. She is 26 pounds overweight. PHYSICAL EXAM: VITAL SIGNS: Height 5 foot 7 inches, weight 184 pounds. BMI 28.8 Vital Signs Temp 97.7 F 03/21/23 13:56 Pulse 84 03/21/23 13:56 Resp BP 126/87 03/21/23 13:56 Pulse Ox FiO2 GENERAL: Well-developed in no acute distress. HEENT: No scleral icterus. Extraocular movements grossly intact. Hears conversational speech. No nasal drainage. NECK: Supple without lymphadenopathy. CHEST: Nonlabored respirations with equal bilateral excursions. CARDIOVASCULAR: Regular rate and regular rhythm. Distal 2+ pulses. ABDOMEN: Obese, soft, nontender, nondistended. Umbilical hernia. MUSCULOSKELETAL: No clubbing, cyanosis. NEURO: No focal or lateralizing signs. Cranial nerves 2 through 12 grossly within normal limits. PSYCH: Appropriate affect. Alert and oriented to person, place and time. SKIN: Good skin turgor. Well perfused. LABS: Reviewed. No vitamin deficiencies. ASSESSMENT: 1. Morbid obesity due to excess calories, BMI 35.9 to 28.8 2. Diabetes Mellitus type II, ooh-jnjvupu-[id number] with neuropathy 3. Hyperlipidemia 4. Hypothyroidism 5. Osteoarthritis bilateral knees 6. Depressive disorder 7. Generalized anxiety disorder 8. Rectal fissures 9. Postoperative nausea with vomiting 10. Obstructive sleep apnea 11. Osteoarthritis bilateral feet 12. Neuropathy 13. Raynauds 14. Dietary surveillance and counseling 15. Polycystic kidney disease PLAN: 1. Recommend bariatric labs. 2. Recommend thyroid assessment 3. Recommend yearly follow-up Objective - Vital Signs Vital signs: Vital Signs Temp 97.7 F 03/21/23 13:56 Pulse 84 03/21/23 13:56 Resp BP 126/87 03/21/23 13:56 Pulse Ox FiO2 Intake & Output 03/20/23 03/21/23 03/21/23 18:59 06:59 18:59 Weight 83.461 kg Assessment/Plan Plan: Date: 03/21/23 Initial Weight: Initial BMI: Current Weight: 83.461 kg Current BMI: 28.8 Type of Surgery: Total Volume in Band: Previous Volume: Volume Removed: Volume Added: Band Size:
== END ==
LOC: BARWHC3 13:46
PROVIDERS: ATTEND Surgery Plastic and Reconstructive Surgery
DX: E66.01 Morbid (severe) obesity due to excess calories (principal); E78.5 Hyperlipidemia, unspecified; E03.9 Hypothyroidism, unspecified; M17.0 Bilateral primary osteoarthritis of knee; F32.A Depression, unspecified; F41.1 Generalized anxiety disorder; K60.2 Anal fissure, unspecified; K91.0 Vomiting following gastrointestinal surgery; G47.33 Obstructive sleep apnea (adult) (pediatric); E11.40 Type 2 diabetes mellitus with diabetic neuropathy, unspecified; M19.071 Primary osteoarthritis, right ankle and foot; M19.072 Primary osteoarthritis, left ankle and foot; Q61.2 Polycystic kidney, adult type; I73.00 Raynaud's syndrome without gangrene; Z68.28 Body mass index [BMI] 28.0-28.9, adult; Z71.3 Dietary counseling and surveillance; Z88.1 Allergy status to other antibiotic agents; Z88.0 Allergy status to penicillin; Z88.2 Allergy status to sulfonamides; Z88.8 Allergy status to other drugs, medicaments and biological substances; Z87.891 Personal history of nicotine dependence
CPT/HCPCS: 99211

== ENCOUNTER → 2023-07-31 | Outpatient (CLI) | payer BC ==
--- NOTE | 2023-08-21 12:27 | HM ---
HOLTER MONITOR REPORT This is a 72-hour Holter. INDICATION: Palpitations. FINDINGS: Underlying rhythm is sinus with an average heart rate of 52 beats per minute. Heart rate varied from 81 beats per minute to 140 beats per minute. There were episodes of sinus bradycardia and episodes of sinus tachycardia. Rare PVCs are noted. There were no episodes of sustained ventricular or supraventricular tachyarrhythmias. There were no episodes of more than 2-second pauses. CONCLUSIONS: This 72-hour Holter reveals sinus rhythm with rare PVCs. MMODL / IJN: [id number] /
== END | disposition home or self-care (01) ==
LOC: RADECHMAIN 07:17
PROVIDERS: ATTEND Family Medicine
DX: I49.3 Ventricular premature depolarization (principal)
CPT/HCPCS: 93225; 93226

== ENCOUNTER → 2023-12-05 | Outpatient (CLI) | payer BC ==
[2023-12-05 16:49] VITALS: BP 125/87; PULSE 85; RESP 16; TEMP 98.7; BMI 31.1
--- NOTE | 2023-12-05 17:24 | P.BASOAP ---
Subjective Progress Note Date: 12/05/23 She reports depression. She has gained weight 16 pounds in 9 months. Has insight. Get bariatric labs. Thyroide metabolism. Vitamin D. Check vitamin levels that contribute to mood. FU 1 month. Objective - Vital Signs Vital signs: Vital Signs Temp 98.7 F 12/05/23 16:41 Pulse 85 12/05/23 16:41 Resp 16 12/05/23 16:41 BP 125/87 12/05/23 16:41 Pulse Ox FiO2 Intake & Output 12/04/23 12/05/23 12/05/23 18:59 06:59 18:59 Weight 90.265 kg Assessment/Plan Plan: Date: 12/05/23 Initial Weight: Initial BMI: Current Weight: 90.265 kg Current BMI: 31.1 Type of Surgery: Total Volume in Band: Previous Volume: Volume Removed: Volume Added: Band Size:
== END ==
LOC: BARWHC3 15:23
PROVIDERS: ATTEND Surgery Plastic and Reconstructive Surgery
DX: E66.01 Morbid (severe) obesity due to excess calories (principal); Z68.31 Body mass index [BMI] 31.0-31.9, adult; Z88.0 Allergy status to penicillin; Z88.1 Allergy status to other antibiotic agents; Z88.2 Allergy status to sulfonamides; Z88.6 Allergy status to analgesic agent; Z87.891 Personal history of nicotine dependence
CPT/HCPCS: 99211

== ENCOUNTER → 2023-12-07 | Outpatient (CLI) | payer BC ==
[2023-12-07 17:18] LABS: INR 0.9 (<1.2); Partial Thromboplastin Time 24.3 sec (22.0-30.0); Prothrombin Time 10.1 sec (10.0-12.5)
[2023-12-07 20:11] LABS: HCT 38.6 % (37.2-46.3); HGB 12.4 g/dL (12.0-15.0); MCH 29.3 pg (27.0-32.0); MCHC 32.1 g/dL (32.0-37.0); MCV 91.3 FL (80.0-97.0); Mean Platelet Volume 9.6 FL (9.5-12.2); NRBC Per 100 WBC 0 X 10*3/uL (0.00-0.01); Platelet Count 430 X 10*3/uL (140-440); RBC 4.23 X 10*6/uL (4.10-5.20); RDW 12.8 % (11.5-14.5); WBC 6.52 X 10*3/uL (4.50-10.00)
[2023-12-07 20:41] LABS: % Iron Saturation 14.93 (12.00-45.00); BUN/Creat Ratio 24.11 Ratio (12.00-20.00); Blood Urea Nitrogen 21.7 mg/dL (9.0-27.0); Calcium 9.1 mg/dL (8.7-10.3); Carbon Dioxide 25.4 mmol/L (21.6-31.8); Chloride 103 mmol/L (96-109); Glucose 90 mg/dL (70-110); Iron 56 UG/DL (50-170); LDL Cholesterol,Calculated 100.3 mg/dL (0.0-131.0); Magnesium 1.9 mg/dL (1.5-2.4); Phosphorus 3.5 mg/dL (2.4-5.1); Potassium 4.6 mmol/L (3.5-5.5); Sodium 142 mmol/L (135-145); Total Iron Binding Capacity 375 UG/DL (228-460); Total Protein 6.5 g/dL (6.2-8.2)
[2023-12-07 20:42] LABS: ALT 38 U/L (8-44); AST 20 U/L (13-35); Albumin 4.2 g/dL (3.8-4.9); Albumin/Globulin Ratio 1.83 Ratio (1.60-3.17); Alkaline Phosphatase 47 U/L (41-126); Ferritin 24.8 ng/mL (10.0-291.0); Globulin 2.3 g/dL (1.6-3.3); Total Bilirubin <0.2 mg/dL (0.3-1.2)
[2023-12-10 13:09] LABS: Zinc, Serum 73 ug/dL (60-130)
[2023-12-11 11:30] LABS: Vit B1(Thiamine) 101 ug/L (38-122)
[2023-12-11 11:33] LABS: Vitamin A 81 ug/dL (38-106)
[2023-12-19 16:40] LABS: Selenium 129 mcg/L (63-160)
== END | disposition home or self-care (01) ==
LOC: LABWHC1 15:15
PROVIDERS: ATTEND Surgery Plastic and Reconstructive Surgery
DX: E66.01 Morbid (severe) obesity due to excess calories
CPT/HCPCS: 36415; 80053; 80061; 82306; 82525; 82607; 82728; 82746; 83036; 83540; 83550; 83735; 83970; 84100; 84134; 84255; 84425; 84443; 84590; 84630; 85027; 85610; 85730

== ENCOUNTER 2023-12-30 21:04 | Emergency (ER) | payer BC ==
[2023-12-30 21:09] VITALS: TEMP 98.1
[2023-12-30] MEDS: ACETAMINOPHEN TAB 325 MG TAB PO STA (21:49)
[2023-12-30] MEDS: IBUPROFEN 600 MG TAB PO STA (21:50)
[2023-12-30 22:01] LABS: Basophils # (A) 0.1 k/uL (0-0.2); Basophils % (A) 1 %; Eosinophils # (A) 0.1 k/uL (0-0.7); Eosinophils % (A) 2 %; HCT 41.2 % (34.0-46.0); HGB 13.5 gm/dL (11.4-16.0); Lymphocytes # (A) 2.1 k/uL (1.0-4.8); Lymphocytes % (A) 33 %; MCH 29.4 pg (25.0-35.0); MCHC 32.8 g/dL (31.0-37.0); MCV 89.6 fL (80.0-100.0); Mean Platelet Volume 7.7; Monocytes # (A) 0.4 k/uL (0-1.0); Monocytes % (A) 6 %; Neutrophils # (A) 3.6 k/uL (1.3-7.7); Neutrophils % (A) 57 %; Platelet Count 369 k/uL (150-450); RDW 13.4 % (11.5-15.5); WBC 6.4 k/uL (3.8-10.6)
--- NOTE | 2023-12-30 22:06 | ED ---
General Adult HPI - General Chief complaint: Neuro Symptoms/Deficit Stated complaint: High BP, Headache, Nausea Time Seen by Provider: 12/30/23 21:19 Source: patient Mode of arrival: ambulatory Limitations: no limitations - Related Data Home Medications Medication Instructions Recorded Confirmed DULoxetine HCL [Cymbalta] 90 mg PO QAM 07/03/18 12/05/23 Loratadine [Claritin] 10 mg PO DAILY 07/03/18 12/05/23 valACYclovir HCL [Valtrex] 500 mg PO DAILY 07/03/18 12/05/23 ARIPiprazole [Abilify] 5 mg PO HS 11/11/20 12/05/23 Gabapentin 600 mg PO BID 11/11/20 12/05/23 Sodium Bicarbonate Tab 650 mg PO BID 11/11/20 12/05/23 Docusate [Colace] 100 mg PO DAILY 10/26/21 12/05/23 Mv-Min/Folic/Vit K/Lut/[id number] 1 each PO DAILY 06/07/22 12/05/23 [Alive Women's 50 Plus Tablet] Norethindrone Acetate 10 mg PO DAILY 03/21/23 12/05/23 [Norethindrone AC ([place])] busPIRone HCL 10 mg PO TID 12/05/23 12/05/23 Levothyroxine Sodium [Synthroid] 100 mcg PO DAILY 12/17/23 12/17/23 Previous Rx's Medication Instructions Recorded bisacodyL [Dulcolax] 5 mg PO DAILY PRN #10 tab 03/01/22 Allergies Allergy/AdvReac Type Severity Reaction Status Date / Time levofloxacin [From Levaquin] Allergy Rash/Hives Verified 12/30/23 21:05 Penicillins Allergy Rash/Hives Verified 12/30/23 21:05 Quinolones Allergy Rash/Hives Verified 12/30/23 21:05 sulfamethoxazole Allergy Rash/Hives Verified 12/30/23 21:05 [From Bactrim] trimethoprim [From Bactrim] Allergy Rash/Hives Verified 12/30/23 21:05 Review of Systems ROS Statement: Those systems with pertinent positive or pertinent negative responses have been documented in the HPI. ROS Other: All systems not noted in ROS Statement are negative. Past Medical History Past Medical History: Diabetes Mellitus, Hyperlipidemia, Sleep Apnea/CPAP/BIPAP, Thyroid Disorder Additional Past Medical History / Comment(s): hx rectal bleeding hx fissures,polycystic kidney disease, neuropathy hands/feet, diet control diabetic- no longer diabetic History of Any Multi-Drug Resistant Organisms: None Reported Past Surgical History: Back Surgery, Bariatric Surgery Additional Past Surgical History / Comment(s): lamicectomies x2,bunionectomy,rt shoulder surgery,bridger knees arthroscopy, gastric sleeve 02/27/22 Past Anesthesia/Blood Transfusion Reactions: Motion Sickness, Postoperative Nausea & Vomiting (PONV) Additional Past Anesthesia/Blood Transfusion Reaction / Comment(s): no hx blood transfusion Past Psychological History: Anxiety, Depression Smoking Status: Former smoker Past Alcohol Use History: Occasional Past Drug Use History: None Reported - Past Family History Mother Family Medical History: No Reported History General Exam Limitations: no limitations Course Vital Signs 12/30/23 12/30/23 21:06 22:39 Temperature 98.1 F Pulse Rate 88 71 Respiratory 18 16 Rate Blood Pressure 157/92 135/76 O2 Sat by Pulse 98 94 L Oximetry EKG Findings - EKG Results: EKG: interpreted by ERMD, sinus rhythm (Rate 75 bpm), normal axis, normal ST/T - [place], [place], Hypertrophy, ST Abn: QRS axis and voltage: low voltage (<0.5 MV total QRS and <1.0 MV in each precordial lead) Medical Decision Making - Lab Data Result diagrams: 12/30/23 21:52 12/30/23 21:52 Lab Results 12/30/23 12/30/23 12/30/23 Range/Units 21:52 21:52 21:52 WBC 6.4 (3.8-10.6) k/uL RBC 4.60 (3.80-5.40) m/uL Hgb 13.5 (11.4-16.0) gm/dL Hct 41.2 (34.0-46.0) % MCV 89.6 (80.0-100.0) fL MCH 29.4 (25.0-35.0) pg MCHC 32.8 (31.0-37.0) g/dL RDW 13.4 (11.5-15.5) % Plt Count 369 (150-450) k/uL MPV 7.7 Neutrophils % 57 % Lymphocytes % 33 % Monocytes % 6 % Eosinophils % 2 % Basophils % 1 % Neutrophils # 3.6 (1.3-7.7) k/uL Lymphocytes # 2.1 (1.0-4.8) k/uL Monocytes # 0.4 (0-1.0) k/uL Eosinophils # 0.1 (0-0.7) k/uL Basophils # 0.1 (0-0.2) k/uL Sodium 141 (137-145) mmol/L Potassium 4.0 (3.5-5.1) mmol/L Chloride 107 (98-107) mmol/L Carbon Dioxide 24 (22-30) mmol/L Anion Gap 10 mmol/L BUN 19 H (7-17) mg/dL Creatinine 0.86 (0.52-1.04) mg/dL Est GFR (CKD-EPI)AfAm >90 (>60 ml/min/1.73 sqM) Est GFR (CKD-EPI)NonAf 80 (>60 ml/min/1.73 sqM) Glucose 118 H (74-99) mg/dL Calcium 9.5 (8.4-10.2) mg/dL Magnesium 2.0 (1.6-2.3) mg/dL Total Bilirubin 0.4 (0.2-1.3) mg/dL AST 33 (14-36) U/L ALT 30 (4-34) U/L Alkaline Phosphatase 46 (38-126) U/L Troponin I <0.012 (0.000-0.034) ng/mL Total Protein 7.3 (6.3-8.2) g/dL Albumin 4.5 (3.5-5.0) g/dL Disposition Clinical Impression: Hypertension Disposition: HOME SELF-CARE Condition: Good Instructions (If sedation given, give patient instructions): Hypertension (ED) Is patient prescribed a controlled substance at d/c from ED?: No Referrals: Shiela Mcallister MD [Primary Care Provider] - 1-2 days
[2023-12-30 22:19] LABS: ALT 30 U/L (4-34); AST 33 U/L (14-36); African American GFR (CKD) >90 (>60 ml/min/1.73 sqM); Albumin 4.5 g/dL (3.5-5.0); Alkaline Phosphatase 46 U/L (38-126); Anion Gap 10 mmol/L; Blood Urea Nitrogen 19 mg/dL (7-17); Calcium 9.5 mg/dL (8.4-10.2); Carbon Dioxide 24 mmol/L (22-30); Chloride 107 mmol/L (98-107); Glucose 118 mg/dL (74-99); Non-African American GFR(CKD) 80 (>60 ml/min/1.73 sqM); Sodium 141 mmol/L (137-145); Total Bilirubin 0.4 mg/dL (0.2-1.3); Total Protein 7.3 g/dL (6.3-8.2)
--- NOTE | 2023-12-30 22:22 | XR ---
EXAMINATION TYPE: XR chest 2V DATE OF EXAM: 12/30/2023 COMPARISON: 01/23/2023 INDICATION: Hypertension TECHNIQUE: Frontal and lateral views of the chest are obtained. FINDINGS: The heart size is normal. The pulmonary vasculature is normal. The lungs are clear. IMPRESSION: 1. No acute pulmonary process. [facility], Workstation: -[facility], 12/30/2023 10:20 PM
[2023-12-30 22:40] VITALS: RESP 16
[2023-12-30 23:05] VITALS: BP 131/83; PULSE 73
== END 2023-12-30 23:05 | disposition home or self-care (01) ==
LOC: EC 21:04
CPT/HCPCS: 36415; 71046; 80053; 83735; 84484; 85025; 93005; 99284

== ENCOUNTER → 2024-01-16 | Outpatient (CLI) | payer BC ==
[2024-01-16 16:58] VITALS: BP 125/82; PULSE 73; RESP 16; TEMP 98.2; BMI 32.4
--- NOTE | 2024-01-16 17:23 | P.BASOAP ---
Subjective Progress Note Date: 01/16/24 She has multiple social stressors. Her BP is great at clinic but was 220/123. She reports her son is the stressor. SHe is not on a blood pressure medication. Well care needed. Recommend magnesium. Objective - Vital Signs Vital signs: Vital Signs Temp 98.2 F 01/16/24 16:51 Pulse 73 01/16/24 16:51 Resp 16 01/16/24 16:51 BP 125/82 01/16/24 16:51 Pulse Ox FiO2 Intake & Output 01/15/24 01/16/24 01/16/24 18:59 06:59 18:59 Weight 93.894 kg Assessment/Plan Plan: Date: 01/16/24 Initial Weight: Initial BMI: Current Weight: 93.894 kg Current BMI: 32.4 Type of Surgery: Total Volume in Band: Previous Volume: Volume Removed: Volume Added: Band Size:
== END ==
LOC: BARWHC3 15:35
PROVIDERS: ATTEND Surgery Plastic and Reconstructive Surgery
DX: E66.01 Morbid (severe) obesity due to excess calories (principal); Z68.32 Body mass index [BMI] 32.0-32.9, adult; Z88.0 Allergy status to penicillin; Z88.1 Allergy status to other antibiotic agents; Z88.2 Allergy status to sulfonamides; Z88.8 Allergy status to other drugs, medicaments and biological substances; Z87.891 Personal history of nicotine dependence
CPT/HCPCS: 99211

== ENCOUNTER 2024-02-24 16:26 | Emergency (ER) | payer BC ==
[2024-02-24 16:30] VITALS: TEMP 98.4
--- NOTE | 2024-02-24 17:09 | ED ---
Abdominal Pain HPI - General Chief Complaint: Abdominal Pain Stated Complaint: Possible kidney stones, back pain Time Seen by Provider: 02/24/24 16:31 Source: patient, RN notes reviewed Mode of arrival: ambulatory Limitations: no limitations - History of Present Illness Initial Comments: This is a 48-year-old female who presents to the emergency department for left flank pain. States that it started yesterday and has since persisted into today. She has some associated nausea but no vomiting. The pain has started to radiate from the left flank and towards the abdomen. She has a history of polycystic kidney disease as well as kidney stones. She has not had a kidney stone for many years. Believes that the pain feels similar but is not entirely sure. Denies any fevers, chills, or urinary symptoms. MD Complaint: flank pain - Related Data Home Medications Medication Instructions Recorded Confirmed DULoxetine HCL [Cymbalta] 120 mg PO DAILY 07/03/18 02/24/24 valACYclovir HCL [Valtrex] 500 mg PO DAILY 07/03/18 02/24/24 ARIPiprazole [Abilify] 5 mg PO HS 11/11/20 02/24/24 Gabapentin 600 mg PO BID 11/11/20 02/24/24 Sodium Bicarbonate Tab 1,300 mg PO BID 11/11/20 02/24/24 Docusate [Colace] 100 mg PO DAILY 10/26/21 02/24/24 Mv-Min/Folic/Vit K/Lut/[id number] 1 tab PO DAILY 06/07/22 02/24/24 [Alive Women's 50 Plus Tablet] Norethindrone Acetate 10 mg PO DIRECTED 03/21/23 02/24/24 [Norethindrone AC ([place])] Levothyroxine Sodium [Synthroid] 100 mcg PO DAILY 12/17/23 02/24/24 Atorvastatin [Lipitor] 10 mg PO HS 02/24/24 02/24/24 Cyclobenzaprine [Flexeril] 10 mg PO HS PRN 02/24/24 02/24/24 Magnesium Oxide [Magnesium] 500 mg PO HS 02/24/24 02/24/24 busPIRone HCl [Buspar] 10 mg PO TID 02/24/24 02/24/24 hydrOXYzine HCL [Atarax] 50 mg PO HS 02/24/24 02/24/24 Previous Rx's Medication Instructions Recorded HYDROcodone/APAP 5-325MG [[place] 1 tab PO Q6HR PRN 3 Days #12 tab 02/24/24 5-325] Lidocaine 5% Patch [Lidoderm 5% 1 patch TOPICAL DAILY PRN #30 patch 02/24/24 Patch] methocarbamoL [Robaxin-750] 1,500 mg PO TID PRN #30 tab 02/24/24 Allergies Allergy/AdvReac Type Severity Reaction Status Date / Time levofloxacin [From Levaquin] Allergy Rash/Hives Verified 02/24/24 19:18 Penicillins Allergy Rash/Hives Verified 02/24/24 19:18 Quinolones Allergy Rash/Hives Verified 02/24/24 19:18 sulfamethoxazole Allergy Rash/Hives Verified 02/24/24 19:18 [From Bactrim] trimethoprim [From Bactrim] Allergy Rash/Hives Verified 02/24/24 19:18 NSAIDS (Non-Steroidal AdvReac Unknown Verified 02/24/24 19:18 Anti-Inflamma Review of Systems ROS Statement: Those systems with pertinent positive or pertinent negative responses have been documented in the HPI. ROS Other: All systems not noted in ROS Statement are negative. Past Medical History Past Medical History: Diabetes Mellitus, Hyperlipidemia, Sleep Apnea/CPAP/BIPAP, Thyroid Disorder Additional Past Medical History / Comment(s): hx rectal bleeding hx fissures, polycystic kidney disease, neuropathy hands/feet, diet control diabetic- no longer diabetic History of Any Multi-Drug Resistant Organisms: None Reported Past Surgical History: Back Surgery, Bariatric Surgery Additional Past Surgical History / Comment(s): lamicectomies x2,bunionectomy,rt shoulder surgery,bridger knees arthroscopy, gastric sleeve 02/27/22 Past Anesthesia/Blood Transfusion Reactions: Motion Sickness, Postoperative Nausea & Vomiting (PONV) Additional Past Anesthesia/Blood Transfusion Reaction / Comment(s): no hx blood transfusion Past Psychological History: Anxiety, Depression Smoking Status: Former smoker Past Alcohol Use History: Occasional Past Drug Use History: None Reported - Past Family History Mother Family Medical History: No Reported History General Exam Limitations: no limitations General appearance: alert, in distress Head exam: Present: atraumatic, normocephalic, normal inspection Respiratory exam: Present: normal lung sounds bilaterally. Absent: respiratory distress, wheezes, rales, rhonchi, stridor Cardiovascular Exam: Present: regular rate, normal rhythm, normal heart sounds. Absent: systolic murmur, diastolic murmur, rubs, gallop, clicks GI/Abdominal exam: Present: soft, tenderness (left mid abdomen), normal bowel sounds. Absent: distended Back exam: Present: CVA tenderness (L). Absent: CVA tenderness (R) Neurological exam: Present: alert, oriented X3, CN II-XII intact Psychiatric exam: Present: normal affect, normal mood Skin exam: Present: warm, dry, intact, normal color. Absent: rash Course Vital Signs 02/24/24 02/24/24 02/24/24 16:27 17:22 18:32 Temperature 98.4 F Pulse Rate 90 87 98 Respiratory 16 18 16 Rate Blood Pressure 133/72 127/67 122/68 O2 Sat by Pulse 98 95 76 L Oximetry Medical Decision Making - Medical Decision Making This is a 48-year-old female who presents to the emergency department for left flank pain. Was pt. sent in by a medical professional or institution? @ -No Did you speak to anyone other than the patient for history? @ -No Did you review nursing and triage notes? @ -Yes, and I agree, it is accurate with regards to the patient's symptoms. Were old charts reviewed? @ -No Differential Diagnosis? @ -Differential Flank Pain: UTI, pyelonephritis, kidney stone, musculoskeletal, pancreatitis, cholecystitis, this is not meant to be an all-inclusive list. EKG interpreted by me (3pts min.)? @ -EKG interpreted by me demonstrating the following: Sinus rhythm. Ventricular rate 79 bpm, AK interval 113 ms, QRS duration 82 ms, QTc 387 ms. X-rays interpreted by me (1pt min.)? @ -Not obtained CT interpreted by me (1pt min.)? @ -CT scan of the abdomen and pelvis obtained. My interpretation identifies no evidence of a ureteral calculus. U/S interpreted by me (1pt. min.)? @ -Not obtained What testing was considered but not performed? (CT, X-rays, U/S, labs)? Why? @ -None What meds were considered but not given? Why? @ -None Did you discuss the management of the patient with other professionals? @ -No Did you reconcile home meds? @ -No Was smoking cessation discussed for >3mins.? @ -No Was critical care preformed (if so, how long)? @ -No Were there social determinants of health that impacted care today? How? (Homelessness, low income, unemployed, alcoholism, drug addiction, transportation, low edu. Level, literacy, decrease access to med. care, halfway, rehab)? @ -No Was there de-escalation of care discussed even if they declined? (Discuss DNR or withdrawal of care, Hospice)? @ -No What co-morbidities impacted this encounter? (DM, HTN, Smoking, COPD, CAD, Cancer, CVA, Hep., AIDS, mental health diagnosis, sleep apnea, morbid obesity)? @ -DM, polycystic kidney disease Was patient admitted / discharged? @ -Discharged. Lab work demonstrates mild hypoglycemia and was otherwise unremarkable. Urinalysis negative for signs of blood or infection. CT scan of the abdomen and pelvis reveals no acute process. Symptoms may be musculo skeletal in nature. Pain was treated in the emergency department. Given that she is unable to take NSAIDs, she was given a prescription for a 3-day course of [place] to be taken very sparingly when her pain is the most severe. Advised she otherwise take Tylenol. Robaxin and lidocaine patches prescribed as well. Advised follow-up with her PCP for reevaluation. Patient discharged home in stable condition. Case discussed with ED attending Dr. Giron. Return precautions reviewed in depth, the patient is instructed to return to the emergency department with any new, worsening, or concerning symptoms. Patient verbalized understanding. Undiagnosed new problem with uncertain prognosis? @ -None Drug Therapy requiring intensive monitoring for toxicity (Heparin, Nitro, Insulin, Cardizem)? @ -None Were any procedures done? @ -None Diagnosis/symptom? @ -Back pain Acute, or Chronic, or Acute on Chronic? @ -Acute Uncomplicated (without systemic symptoms) or Complicated (systemic symptoms)? @ -Uncomplicated Side effects of treatment? @ -None Exacerbation, Progression, or Severe Exacerbation] @ -Not applicable Poses a threat to life or bodily function? @ -No - Lab Data Result diagrams: 02/24/24 17:08 02/24/24 17:08 Lab Results 02/24/24 02/24/24 02/24/24 Range/Units 17:08 17:08 17:08 WBC 8.2 (3.8-10.6) k/uL RBC 4.54 (3.80-5.40) m/uL Hgb 13.0 (11.4-16.0) gm/dL Hct 40.6 (34.0-46.0) % MCV 89.4 (80.0-100.0) fL MCH 28.7 (25.0-35.0) pg MCHC 32.1 (31.0-37.0) g/dL RDW 12.7 (11.5-15.5) % Plt Count 356 (150-450) k/uL MPV 6.9 Neutrophils % 53 % Lymphocytes % 37 % Monocytes % 6 % Eosinophils % 1 % Basophils % 0 % Neutrophils # 4.3 (1.3-7.7) k/uL Lymphocytes # 3.0 (1.0-4.8) k/uL Monocytes # 0.5 (0-1.0) k/uL Eosinophils # 0.1 (0-0.7) k/uL Basophils # 0.0 (0-0.2) k/uL Sodium 137 (137-145) mmol/L Potassium 3.7 (3.5-5.1) mmol/L Chloride 107 (98-107) mmol/L Carbon Dioxide 20 L (22-30) mmol/L Anion Gap 10 mmol/L BUN 18 H (7-17) mg/dL Creatinine 0.90 (0.52-1.04) mg/dL Est GFR (CKD-EPI)AfAm 87 (>60 ml/min/1.73 sqM) Est GFR (CKD-EPI)NonAf 76 (>60 ml/min/1.73 sqM) Glucose 72 L (74-99) mg/dL Plasma Lactic Acid [place] (0.7-2.0) mmol/L Calcium 9.0 (8.4-10.2) mg/dL Total Bilirubin 0.3 (0.2-1.3) mg/dL AST 25 (14-36) U/L ALT 27 (4-34) U/L Alkaline Phosphatase 40 (38-126) U/L Total Protein 6.9 (6.3-8.2) g/dL Albumin 4.2 (3.5-5.0) g/dL Amylase 42 (30-110) U/L Lipase 159 (23-300) U/L Urine Color Light Yellow Urine Appearance Cloudy H (Clear) Urine pH 7.0 (5.0-8.0) Ur Specific [place] 1.015 (1.001-1.035) Urine Protein Negative (Negative) Urine Glucose (UA) Negative (Negative) Urine Ketones Negative (Negative) Urine Blood Negative (Negative) Urine Nitrite Negative (Negative) Urine Bilirubin Negative (Negative) Urine Urobilinogen <2.0 (<2.0) mg/dL Ur Leukocyte Esterase Trace H (Negative) Urine RBC 1 (0-5) /hpf Urine WBC 2 (0-5) /hpf Ur Squamous Epith Cells 5 H (0-4) /hpf Urine Bacteria Occasional H (None) /hpf Urine Mucus Rare H (None) /hpf 02/24/24 Range/Units 17:08 WBC (3.8-10.6) k/uL RBC (3.80-5.40) m/uL Hgb (11.4-16.0) gm/dL Hct (34.0-46.0) % MCV (80.0-100.0) fL MCH (25.0-35.0) pg MCHC (31.0-37.0) g/dL RDW (11.5-15.5) % Plt Count (150-450) k/uL MPV Neutrophils % % Lymphocytes % % Monocytes % % Eosinophils % % Basophils % % Neutrophils # (1.3-7.7) k/uL Lymphocytes # (1.0-4.8) k/uL Monocytes # (0-1.0) k/uL Eosinophils # (0-0.7) k/uL Basophils # (0-0.2) k/uL Sodium (137-145) mmol/L Potassium (3.5-5.1) mmol/L Chloride (98-107) mmol/L Carbon Dioxide (22-30) mmol/L Anion Gap mmol/L BUN (7-17) mg/dL Creatinine (0.52-1.04) mg/dL Est GFR (CKD-EPI)AfAm (>60 ml/min/1.73 sqM) Est GFR (CKD-EPI)NonAf (>60 ml/min/1.73 sqM) Glucose (74-99) mg/dL Plasma Lactic Acid [place] 1.2 (0.7-2.0) mmol/L Calcium (8.4-10.2) mg/dL Total Bilirubin (0.2-1.3) mg/dL AST (14-36) U/L ALT (4-34) U/L Alkaline Phosphatase (38-126) U/L Total Protein (6.3-8.2) g/dL Albumin (3.5-5.0) g/dL Amylase (30-110) U/L Lipase (23-300) U/L Urine Color Urine Appearance (Clear) Urine pH (5.0-8.0) Ur Specific [place] (1.001-1.035) Urine Protein (Negative) Urine Glucose (UA) (Negative) Urine Ketones (Negative) Urine Blood (Negative) Urine Nitrite (Negative) Urine Bilirubin (Negative) Urine Urobilinogen (<2.0) mg/dL Ur Leukocyte Esterase (Negative) Urine RBC (0-5) /hpf Urine WBC (0-5) /hpf Ur Squamous Epith Cells (0-4) /hpf Urine Bacteria (None) /hpf Urine Mucus (None) /hpf - Radiology Data Radiology results: report reviewed, image reviewed Disposition Clinical Impression: Back pain Disposition: HOME SELF-CARE Instructions (If sedation given, give patient instructions): Flank Pain (ED), Back Pain (ED) Additional Instructions: Return to the emergency department with any new, worsening, or concerning symptoms. Take the Robaxin as 1 to 2 tablets up to 3-4 times daily. Take the [place] sparingly when your pain is the most severe and otherwise take Tylenol. You can also apply the lidocaine patches daily. Follow up with your primary car e provider in 1-2 days. Prescriptions: Lidocaine 5% Patch [Lidoderm 5% Patch] 1 patch TOPICAL DAILY PRN #30 patch PRN Reason: Pain HYDROcodone/APAP 5-325MG [[place] 5-325] 1 tab PO Q6HR PRN 3 Days #12 tab PRN Reason: Pain methocarbamoL [Robaxin-750] 1,500 mg PO TID PRN #30 tab PRN Reason: Pain Is patient prescribed a controlled substance at d/c from ED?: Yes When asked, does pt state using other controlled substances?: No If prescribed controlled substance>3 days was MAPS reviewed?: Prescribed <3 Days Referrals: Shiela Mcallister MD [Primary Care Provider] - 1-2 days Time of Disposition: 19:25
[2024-02-24 17:18] LABS: Basophils % (A) 0 %; Eosinophils # (A) 0.1 k/uL (0-0.7); Eosinophils % (A) 1 %; HCT 40.6 % (34.0-46.0); Lymphocytes % (A) 37 %; MCH 28.7 pg (25.0-35.0); MCHC 32.1 g/dL (31.0-37.0); MCV 89.4 fL (80.0-100.0); Mean Platelet Volume 6.9; Monocytes # (A) 0.5 k/uL (0-1.0); Monocytes % (A) 6 %; Neutrophils # (A) 4.3 k/uL (1.3-7.7); Neutrophils % (A) 53 %; Platelet Count 356 k/uL (150-450); RBC 4.54 m/uL (3.80-5.40); RDW 12.7 % (11.5-15.5); WBC 8.2 k/uL (3.8-10.6)
[2024-02-24] MEDS: SODIUM CHLORIDE 0.9% 1,000 ML IV STA (17:19)
[2024-02-24] MEDS: MORPHINE SULFATE 4 MG/ML SYRINGE IVP STA (17:21)
[2024-02-24 17:22] LABS: Appearance,Urine Cloudy (Clear); Bacteria,Urine Occasional /hpf; Bilirubin,Urine Negative (Negative); Blood,Urine Negative (Negative); Color,Urine Light Yellow; Glucose,Urine (UA) Negative (Negative); Ketones,Urine Negative (Negative); Leukocyte Esterase,Urine Trace (Negative); Mucus,Urine Rare /hpf; Nitrite,Urine Negative (Negative); Protein,Urine Negative (Negative); RBC,Urine 1 /hpf (0-5); Specific Gravity,Urine 1.015 (1.001-1.035); Squamous Epithelial Cell,Urine 5 /hpf (0-4); Urobilinogen,Urine <2.0 mg/dL (<2.0); WBC,Urine 2 /hpf (0-5)
[2024-02-24 17:31] LABS: ALT 27 U/L (4-34); AST 25 U/L (14-36); African American GFR (CKD) 87 (>60 ml/min/1.73 sqM); Albumin 4.2 g/dL (3.5-5.0); Alkaline Phosphatase 40 U/L (38-126); Amylase 42 U/L (30-110); Anion Gap 10 mmol/L; Blood Urea Nitrogen 18 mg/dL (7-17); Carbon Dioxide 20 mmol/L (22-30); Chloride 107 mmol/L (98-107); Glucose 72 mg/dL (74-99); Lipase 159 U/L (23-300); Non-African American GFR(CKD) 76 (>60 ml/min/1.73 sqM); Potassium 3.7 mmol/L (3.5-5.1); Sodium 137 mmol/L (137-145); Total Bilirubin 0.3 mg/dL (0.2-1.3); Total Protein 6.9 g/dL (6.3-8.2)
--- NOTE | 2024-02-24 17:53 | CT ---
EXAMINATION TYPE: CT abdomen pelvis wo con DATE OF EXAM: 02/24/2024 5:43 PM COMPARISON: None available. CLINICAL INDICATION: Female, 48 years old with history of Left flank pain; Left flank pain x 1 day TECHNIQUE: Axial CT abdomen pelvis wo con;Sagittal and coronal reformats were created on a separate workstation. Oral contrast used: without Oral Contrast CT DLP: 891.4 mGycm, Automated exposure control for dose reduction was used. FINDINGS: LOWER CHEST: Unremarkable ABDOMEN LIVER: Numerous simple appearing hepatic cysts. GALLBLADDER AND BILE DUCTS: Unremarkable. PANCREAS: Unremarkable. SPLEEN: Unremarkable. ADRENAL GLANDS: Unremarkable. KIDNEYS AND URETERS: Bilateral nonobstructing renal calculi. No hydronephrosis or hydroureter. Left-s ided renal cystic lesions, not well evaluated given lack of IV contrast. PELVIS BLADDER: No evidence for wall thickening or mass given limitations of exam. REPRODUCTIVE: Mildly prominent appearance of the uterus. ABDOMEN & PELVIS STOMACH AND BOWEL: Previously gastrectomy.Appendix normal. No evidence of bowel obstruction. PERITONEUM/RETROPERITONEUM: No evidence of pneumoperitoneum or free fluid. VASCULATURE: No evidence of aortic aneurysm. MUSCULOSKELETAL: No acute osseous abnormalities LYMPH NODES: No gross evidence for lymphadenopathy. SOFT TISSUE/ABDOMINAL WALL: Unremarkable IMPRESSION: 1. No acute abnormality in the abdomen/pelvis. Specifically, no evidence of acute obstructive uropat hy. 2. Nonobstructing bilateral renal calculi. [facility], , 02/24/2024 5:50 PM
[2024-02-24 18:35] VITALS: RESP 16
[2024-02-24] MEDS: LIDOCAINE 4% PATCH TOPICAL ONE (18:35)
[2024-02-24] MEDS: ORPHENADRINE 30 MG/ML 2 ML VIAL IVP STA (18:39)
[2024-02-24] MEDS: HYDROmorphone 0.5 MG/0.5 ML SYRINGE IVP STA (18:46)
[2024-02-24] MEDS: DEXAMETHASONE SOD PHOSPHATE 10 MG/ML 1 ML VIAL IVP STA (18:48)
[2024-02-24] MEDS: ACET/COD 300 MG/30 MG STARTER PACK 6 TAB BTL PO STA (19:45)
[2024-02-24] MEDS: CYCLOBENZAPRINE 10MG STARTER 3 TAB BTL PO STA (19:45)
[2024-02-24 19:53] VITALS: BP 126/79; PULSE 74
== END 2024-02-24 19:53 | disposition home or self-care (01) ==
LOC: EC 16:26
DX: M54.9 Dorsalgia, unspecified (principal); E11.40 Type 2 diabetes mellitus with diabetic neuropathy, unspecified; N20.0 Calculus of kidney; Z87.891 Personal history of nicotine dependence; Z88.2 Allergy status to sulfonamides; Z88.0 Allergy status to penicillin; Z88.1 Allergy status to other antibiotic agents; Z88.6 Allergy status to analgesic agent; Z88.8 Allergy status to other drugs, medicaments and biological substances
CPT/HCPCS: 36415; 93005; 80053; 82150; 83605; 83690; 85025; 81001; 74176; 99284; 96374; 96375; 96361; J2270; J1100; J2360; J1171

== ENCOUNTER → 2024-07-24 | Outpatient (CLI) | payer BC ==
[2024-07-24 12:37] LABS: INR 0.9 (<1.2); Partial Thromboplastin Time 21.4 sec (22.0-30.0); Prothrombin Time 10.2 sec (10.0-12.5)
[2024-07-24 15:40] LABS: % Iron Saturation 20.42 (12.00-45.00); ALT 35 U/L (8-44); AST 25 U/L (13-35); Albumin 4.2 g/dL (3.8-4.9); Albumin/Globulin Ratio 1.75 Ratio (1.60-3.17); Alkaline Phosphatase 45 U/L (41-126); BUN/Creat Ratio 14.33 Ratio (12.00-20.00); Blood Urea Nitrogen 12.9 mg/dL (9.0-27.0); Carbon Dioxide 22.3 mmol/L (21.6-31.8); Chloride 104 mmol/L (96-109); Chol/HDL Ratio 3.36 Ratio; Ferritin 17.7 ng/mL (10.0-291.0); Globulin 2.4 g/dL (1.6-3.3); Glucose 92 mg/dL (70-110); Iron 78 UG/DL (50-170); LDL Cholesterol,Calculated 131.8 mg/dL (0.0-131.0); Magnesium 1.9 mg/dL (1.5-2.4); Phosphorus 3.5 mg/dL (2.4-5.1); Potassium 4.3 mmol/L (3.5-5.5); Sodium 139 mmol/L (135-145); Total Bilirubin <0.2 mg/dL (0.3-1.2); Total Iron Binding Capacity 382 UG/DL (228-460); Total Protein 6.6 g/dL (6.2-8.2); VLDL Calculation 15.74 mg/dL (5.00-40.00)
[2024-07-24 18:07] LABS: Prealbumin 29.7 mg/dL (18.0-42.0)
[2024-07-24 18:48] LABS: HCT 40.3 % (37.2-46.3); HGB 12.7 g/dL (12.0-15.0); MCH 28.7 pg (27.0-32.0); MCHC 31.5 g/dL (32.0-37.0); NRBC Per 100 WBC 0 X 10*3/uL (0.00-0.01); Platelet Count 373 X 10*3/uL (140-440); RBC 4.43 X 10*6/uL (4.10-5.20); RDW 13.5 % (11.5-14.5); WBC 5.83 X 10*3/uL (4.50-10.00)
--- NOTE | 2024-07-25 11:16 | P.PN ---
Progress Note - Text Progress Note Date: 07/25/24 Labs reviewed with TSH elevated over 1.0. Increase Synthroid from 100 to 175 mcg daily.
[2024-07-25 12:31] LABS: Zinc, Serum 51 ug/dL (60-130)
== END | disposition home or self-care (01) ==
LOC: LABWHC1 11:09
PROVIDERS: ATTEND Surgery Plastic and Reconstructive Surgery
DX: E55.9 Vitamin D deficiency, unspecified (principal); E89.1 Postprocedural hypoinsulinemia; E44.0 Moderate protein-calorie malnutrition; E45 Retarded development following protein-calorie malnutrition; D50.8 Other iron deficiency anemias; D50.9 Iron deficiency anemia, unspecified; K74.1 Hepatic sclerosis; N19 Unspecified kidney failure; K50.90 Crohn's disease, unspecified, without complications; T56.894A Toxic effect of other metals, undetermined, initial encounter
CPT/HCPCS: 36415; 80053; 80061; 82306; 82525; 82607; 82728; 82746; 83036; 83540; 83550; 83735; 83970; 84100; 84134; 84255; 84425; 84443; 84590; 84630; 85027; 85610; 85730

== ENCOUNTER → 2024-09-03 | Outpatient (CLI) | payer BC ==
[2024-09-03 13:37] VITALS: BP 135/83; PULSE 99; RESP 16; TEMP 98.1; BMI 33.6
--- NOTE | 2024-09-03 15:08 | P.BASOAP ---
Subjective Progress Note Date: 09/03/24 Patient presents 1 month following. She continues to gain weight. Thyroid has been elevated from 75 to 175 mcg. Patient was unable to download a food diary journal. Patient asked to download free version of my fitness pal. Additionally, she is on antidepressant which blocks the thyroid metabolism. S tanding order for monthly thyroid checks placed with 6 printed copies. Goal of 40% carbs, 30% protein, 30% fast described. Patient asked to select maintain weight loss with nonactive to get max amount of protein daily. Close follow-up in 1 month advised Objective - Vital Signs Vital signs: Vital Signs Temp 98.1 F 09/03/24 13:34 Pulse 99 09/03/24 13:34 Resp 16 09/03/24 13:34 BP 135/83 09/03/24 13:34 Pulse Ox FiO2 Intake & Output 09/02/24 09/03/24 09/03/24 18:59 06:59 18:59 Weight 97.522 kg Assessment/Plan Plan: Date: 09/03/24 Initial Weight: Initial BMI: Current Weight: 97.522 kg Current BMI: 33.6 Type of Surgery: Total Volume in Band: Previous Volume: Volume Removed: Volume Added: Band Size:
== END ==
LOC: BARWHC3 12:57
PROVIDERS: ATTEND Surgery Plastic and Reconstructive Surgery
DX: E66.01 Morbid (severe) obesity due to excess calories (principal); Z87.891 Personal history of nicotine dependence; Z88.0 Allergy status to penicillin; Z88.1 Allergy status to other antibiotic agents; Z88.2 Allergy status to sulfonamides; Z88.6 Allergy status to analgesic agent; Z68.33 Body mass index [BMI] 33.0-33.9, adult
CPT/HCPCS: 84443; 99211